=== PATIENT | female | born 1985 | race Caucasian/White ===

== ENCOUNTER 2017-11-13 09:33 | Emergency (ER) | payer OTHER ==
[~2017-11-13] VITALS: Ht 167.6 cm; Wt 117.9 kg
[~2017-11-13 09:33] MED LIST: ? ANTIBIOTIC; ACET325 PO; ACET500 PO; ALBIPROI INH; ALBU.083IS IH; ALBU90I INH; ALBU90OI61 INH; AMOCLA500; AMOCLA875 PO; AMOX500 PO; ARIP10 PO; ARIP15 PO; ATOM40 PO; ATOR10 PO; AZIT250 PO; AZIT500 PO; Augmentin 875-1 EACH PO; BCP; BCP'S; BUSP10; Bactrim Ds Tab1 EACH PO; Benadryl 50 mg50 MG PO; CEFP200 PO; CEPH500 PO; CIPHYDOTSU AS; CIPHYDOTSU OT; CITA20 PO; CLIN300 PO; CLON.5 PO; CLON1 PO; CRUTCH3 USE; CRUTCH4 USE; CYCL10 PO; Catapres0.1 MG PO; Cleocin HCl300 MG PO; DEXGUASY PO; DOCU100 PO; DULO30 PO; DULO60 PO; Diflucan100 MG PO; Diflucan200 MG PO; Drysol35 ML; FAMO20 PO; FLUC100 PO; FLUC150A PO; FLUC200 PO; FLUSAL2505 IH; FURO20 PO; GABA300 PO; GLUCOPHAGE; HYDACE10B PO; HYDACE5 PO; HYDGUAL120 PO; HYDHCL25 PO; IBUP600 PO; IBUP800; IBUP800 PO; IRON; IRON PO; Keflex500 MG PO; LAMO100; LITH300C PO; MEDICAL MARIJUANA; METERG.2 PO; METF500 PO; METHADONE10 MG/1 ML PO; METR500; MONT10T; MULVITMINE; MULVITMINE PO; MUPI2TO TOP; Monodox100 MG PO; NAPR375 PO; NAPR500; NAPR500 PO; NAPR550 PO; NITR100CA PO; NORT10 PO; NORT75 PO; NYST100TO TOP; Norco 10-325 T1 EACH PO; OLAN5 PO; OMEP20ER PO; ORACON PO; OXYACE5T PO; OXYACE7.5T PO; OXYCODONE; Oxycodone-Apap1 EAC3 PO; PARO20; PENVK500 PO; PERM5TC TOP; PHENA200 PO; PRAZ1 PO; PRED10 PO; PRED20 PO; PROACE100 PO; PROCODE120 PO; PRODEXEL PO; PROM25 PO; PROP10 PO; PROP60 PO; PROZAC20 MG; RANI150 PO; RIZA; RIZA10MLT; ROBITUSSIN NIG118 ML PO; RXCYCL10 PO; RXERYTOPTH OP; RXOXYACE PO; RXPROACE PO; SAPHRIS SL; SERT100; SERT25 PO; SINGULAIR; SUBOXONE 8 MG-1 EACH SL; SULTRIDS PO; SUMA25; TRAACE PO; TRAM50 PO; TRIA80TC TOP; Ultram50 MG PO; VALA500; VARE1 PO; Veetids 500500 MG PO; Ventolin/Prove6.7 GM INH; YASMINE; Zofran Odt4 MG SL; [UNRECOGNIZED DRUG - REMARK]; [UNRECOGNIZED DRUG - REMARK] PO
[2017-11-13] MEDS ORDERED: Lamictal150 MG PO (09:49)
[2017-11-13] MEDS ORDERED: Vyvanse70 MG PO (09:49)
[2017-11-13] MEDS ORDERED: Prozac40 MG PO (09:49)
[2017-11-13] MEDS ORDERED: Veetids 500500 MG PO (10:20)
[2017-11-13] MEDS ORDERED: Diflucan150 MG PO (10:20)
[2017-11-13] MEDS ORDERED: Zofran Odt4 MG SL (10:20)
[2018-10-22] MEDS ORDERED: NAPR550 PO (21:38)
== END 2017-11-13 10:37 | disposition home or self-care (01) ==
LOC: ER 09:33
DX: J02.0 Streptococcal pharyngitis (principal); J45.909 Unspecified asthma, uncomplicated; E11.9 Type 2 diabetes mellitus without complications; F17.200 Nicotine dependence, unspecified, uncomplicated; Z88.6 Allergy status to analgesic agent; Z88.1 Allergy status to other antibiotic agents; Z91.040 Latex allergy status; Z88.8 Allergy status to other drugs, medicaments and biological substances; Z79.899 Other long term (current) drug therapy; Z86.14 Personal history of Methicillin resistant Staphylococcus aureus infection; Z86.19 Personal history of other infectious and parasitic diseases; Z79.2 Long term (current) use of antibiotics
CPT/HCPCS: 87430; 99283

== ENCOUNTER 2018-01-02 17:33 | Emergency (ER) | payer OTHER ==
[~2018-01-02] VITALS: Ht 167.6 cm; Wt 120.7 kg
[~2018-01-02 17:33] MED LIST changes: +Diflucan150 MG PO; +Lamictal150 MG PO; +Prozac40 MG PO; +Vyvanse70 MG PO
[2018-01-02 18:11] LABS: BASOPHILS ABSOLUTE AUTO 0.03 K/mm3 (0.00-0.23); BASOPHILS PERCENT AUTO 0 % (0-2); EOSINOPHILS ABSOLUTE AUTO 0.17 K/mm3 (0.00-0.68); EOSINOPHILS PERCENT AUTO 2 % (0-6); Hematocrit 41.2 % (33.0-51.0); Hemoglobin 13.6 g/dL (11.5-16.0); IMMATURE GRAN ABSOLUTE AUTO 0.06 K/mm3 (0.00-0.10); IMMATURE GRAN PERCENT AUTO 1 % (0-1); LYMPHOCYTES ABSOLUTE AUTO 3.12 K/mm3 (0.84-5.20); LYMPHOCYTES PERCENT AUTO 27 % (21-46); MONOCYTES ABSOLUTE AUTO 0.77 K/mm3 (0.16-1.47); MONOCYTES PERCENT AUTO 7 % (4-13); Mean Corpuscular HGB 29.2 pg (26.0-34.0); Mean Corpuscular Volume 88 fL (80-100); Mean Platelet Volume 9.3 fL (9.1-12.4); NEUTROPHILS ABSOLUTE AUTO 7.28 K/mm3 (1.96-9.15); NEUTROPHILS PERCENT AUTO 64 % (41-73); Platelet Count 294 K/mm3 (150-400); RDW Coefficient Variation 12.6 % (11.7-14.2); RDW Standard Deviation 41.1 fL (35.1-46.3); Red Blood Cell Count 4.66 M/mm3 (3.80-5.20); White Blood Cell Count 11.43 K/mm3 (4.00-11.30)
[2018-01-02 18:35] LABS: Alanine Aminotransfer (ALT/SGP 58 U/L (12-78); Albumin, Blood 3.4 g/dL (3.4-5.0); Albumin/Globulin Ratio 0.8 (0.8-1.8); Alk Phos 101 U/L (50-136); Anion Gap 7 mmol/L (6-16); Aspartate Aminotrans (AST/SGOT 36 U/L (12-37); Bilirubin, Total 0.2 mg/dL (0.1-1.0); Blood Urea Nitrogen 11 mg/dL (8-24); Bun/Creatinine Ratio 13.3 (12.0-20.0); CO2, Blood 26 mmol/L (21-32); Calcium, Blood 8.4 mg/dL (8.5-10.1); Chloride, Blood 105 mmol/L (98-108); Creatinine, Blood 0.83 mg/dL (0.40-1.00); Glomerular Filtration Rate >60 (60-); Glucose, Blood 87 mg/dL (70-99); Potassium, Blood 4.1 mmol/L (3.5-5.5); Sodium, Blood 138 mmol/L (136-145); Total Protein, Blood 7.4 g/dL (6.4-8.2); Troponin I <0.015 ng/mL (0.000-0.040)
[2018-10-22] MEDS ORDERED: NAPR550 PO (21:38)
== END 2018-01-02 19:18 | disposition home or self-care (01) ==
LOC: ER 17:33
PROVIDERS: Physician Assistant
DX: K29.70 Gastritis, unspecified, without bleeding (principal); E11.9 Type 2 diabetes mellitus without complications; J45.909 Unspecified asthma, uncomplicated; F17.200 Nicotine dependence, unspecified, uncomplicated; Z88.8 Allergy status to other drugs, medicaments and biological substances; Z86.14 Personal history of Methicillin resistant Staphylococcus aureus infection; Z88.1 Allergy status to other antibiotic agents; Z91.040 Latex allergy status; Z79.899 Other long term (current) drug therapy; Z79.2 Long term (current) use of antibiotics
CPT/HCPCS: 36415; 71046; 80053; 84484; 85025; 93005; 93010; 99283

== ENCOUNTER 2018-04-28 08:45 | Day surgery (SDC) | payer OTHER ==
[2018-04-29] MEDS ORDERED: Bactrim Ds Tab1 EACH PO (23:48)
[2018-04-29] MEDS ORDERED: Diflucan100 MG PO (23:48)
== END 2018-04-29 22:45 | disposition home or self-care (01) ==
LOC: RAD 08:45 → CT 10:00 → RAD 04-29 22:45
PROVIDERS: Radiology Diagnostic Radiology
PROC: BR29YZZ Computerized Tomography (CT Scan) of Lumbar Spine using Other Contrast (ICD-10-PCS; principal; 2018-04-28 11:00)
DX: M47.27 Other spondylosis with radiculopathy, lumbosacral region (principal); M48.061 Spinal stenosis, lumbar region without neurogenic claudication; M19.90 Unspecified osteoarthritis, unspecified site
CPT/HCPCS: 62304; 72132; Q9966

== ENCOUNTER 2018-04-29 22:21 | Emergency (ER) | payer OTHER ==
[~2018-04-29] VITALS: Ht 167.6 cm; Wt 126.5 kg
[2018-04-29] MEDS ORDERED: Diflucan100 MG PO (23:48)
[2018-04-29] MEDS ORDERED: Bactrim Ds Tab1 EACH PO (23:48)
== END 2018-04-29 23:55 | disposition home or self-care (01) ==
LOC: ER 22:21
DX: S50.812A Abrasion of left forearm, initial encounter (principal); L02.414 Cutaneous abscess of left upper limb; E11.9 Type 2 diabetes mellitus without complications; J45.909 Unspecified asthma, uncomplicated; F17.210 Nicotine dependence, cigarettes, uncomplicated; Z88.8 Allergy status to other drugs, medicaments and biological substances; Z88.1 Allergy status to other antibiotic agents; Z91.040 Latex allergy status; Z91.048 Other nonmedicinal substance allergy status; Z79.899 Other long term (current) drug therapy; X58.XXXA Exposure to other specified factors, initial encounter
CPT/HCPCS: 10060; 99283

== ENCOUNTER 2018-07-27 07:46 | Emergency (ER) | payer OTHER ==
[~2018-07-27] VITALS: Ht 167.6 cm; Wt 122.5 kg
[2018-07-27] MEDS ORDERED: METH40 PO (08:10)
[2018-07-27] MEDS ORDERED: Amoxicillin500 MG PO (08:14)
[2018-07-27] MEDS ORDERED: IBUP800 PO (08:14)
== END 2018-07-27 08:36 | disposition home or self-care (01) ==
LOC: ER 07:46
DX: K08.89 Other specified disorders of teeth and supporting structures (principal); J45.909 Unspecified asthma, uncomplicated; E11.9 Type 2 diabetes mellitus without complications; F17.200 Nicotine dependence, unspecified, uncomplicated; Z88.8 Allergy status to other drugs, medicaments and biological substances; Z88.1 Allergy status to other antibiotic agents; Z91.040 Latex allergy status; Z91.048 Other nonmedicinal substance allergy status; Z79.899 Other long term (current) drug therapy
CPT/HCPCS: 99282

== ENCOUNTER 2018-08-16 02:18 | Emergency (ER) | payer OTHER ==
[~2018-08-16] VITALS: Ht 160 cm; Wt 122.5 kg
[~2018-08-16 02:18] MED LIST changes: +Amoxicillin500 MG PO; +METH40 PO
[2018-08-16] MEDS ORDERED: Bactrim Ds Tab1 EACH PO (03:43)
== END 2018-08-16 03:52 | disposition home or self-care (01) ==
LOC: ER 02:18
DX: L02.211 Cutaneous abscess of abdominal wall (principal); E11.9 Type 2 diabetes mellitus without complications; D64.9 Anemia, unspecified; F17.200 Nicotine dependence, unspecified, uncomplicated; Z88.8 Allergy status to other drugs, medicaments and biological substances; Z88.1 Allergy status to other antibiotic agents; Z91.040 Latex allergy status; Z91.048 Other nonmedicinal substance allergy status; Z79.899 Other long term (current) drug therapy
CPT/HCPCS: 10060; 87070; 87075; 87076; 87185; 87205; 99282-25

== ENCOUNTER 2018-11-27 19:12 | Emergency (ER) | payer OTHER ==
[~2018-11-27] VITALS: Ht 167.6 cm; Wt 122.5 kg
[2018-11-27] MEDS ORDERED: CLIN300 (19:27)
[2018-11-27] MEDS ORDERED: Bactrim Ds Tab1 EACH PO (19:54)
[2018-11-27] MEDS ORDERED: CEPH500 PO (19:54)
== END 2018-11-27 20:14 | disposition home or self-care (01) ==
LOC: ER 19:12
DX: L02.413 Cutaneous abscess of right upper limb (principal); Z88.8 Allergy status to other drugs, medicaments and biological substances; Z88.1 Allergy status to other antibiotic agents; Z91.040 Latex allergy status; Z91.048 Other nonmedicinal substance allergy status; Z79.899 Other long term (current) drug therapy; G43.909 Migraine, unspecified, not intractable, without status migrainosus; D64.9 Anemia, unspecified; E11.9 Type 2 diabetes mellitus without complications; F31.9 Bipolar disorder, unspecified; F17.200 Nicotine dependence, unspecified, uncomplicated
CPT/HCPCS: 10060; 99282-25

== ENCOUNTER → 2018-11-28 | Outpatient (CLI) | payer OTHER ==
[~2018-11-28] MED LIST changes: +CLIN300
== END ==
LOC: LAB 17:00 → LAB SHORT 17:00
DX: L08.9 Local infection of the skin and subcutaneous tissue, unspecified (principal)
CPT/HCPCS: 87070; 87205

== ENCOUNTER → 2018-12-05 | Outpatient (CLI) | payer OTHER | END | disposition home or self-care (01) | LOC: LAB 16:30 → LAB SHORT 16:30 | DX: L08.9 Local infection of the skin and subcutaneous tissue, unspecified (principal) | CPT/HCPCS: 87070; 87075; 87077; 87186; 87205 ==

== ENCOUNTER 2020-07-11 06:26 | Emergency (ER) | payer OTHER ==
[~2020-07-11] VITALS: Ht 167.6 cm; Wt 139.2 kg
[~2020-07-11 06:26] MED LIST changes: -Lamictal150 MG PO; -METH40 PO; -Prozac40 MG PO
[2020-07-11] MEDS ORDERED: AMPDEX10CR PO (06:57)
[2020-07-11 07:06] LABS: BASOPHILS ABSOLUTE AUTO 0.03 K/mm3 (0.00-0.23); BASOPHILS PERCENT AUTO 0 % (0-2); EOSINOPHILS ABSOLUTE AUTO 0.16 K/mm3 (0.00-0.68); EOSINOPHILS PERCENT AUTO 1 % (0-6); Hematocrit 36.5 % (33.0-51.0); Hemoglobin 11.9 g/dL (11.5-16.0); IMMATURE GRAN ABSOLUTE AUTO 0.11 K/mm3 (0.00-0.10); IMMATURE GRAN PERCENT AUTO 1 % (0-1); LYMPHOCYTES ABSOLUTE AUTO 2.33 K/mm3 (0.84-5.20); LYMPHOCYTES PERCENT AUTO 15 % (21-46); MONOCYTES PERCENT AUTO 5 % (4-13); Mean Corpuscular HGB 28.8 pg (26.0-34.0); Mean Corpuscular HGB Conc 32.6 g/dL (31.5-36.5); Mean Corpuscular Volume 88 fL (80-100); Mean Platelet Volume 9.1 fL (9.1-12.4); NEUTROPHILS ABSOLUTE AUTO 11.77 K/mm3 (1.96-9.15); NEUTROPHILS PERCENT AUTO 78 % (41-73); Platelet Count 242 K/mm3 (150-400); RDW Coefficient Variation 13.5 % (11.7-14.2); RDW Standard Deviation 43.8 fL (35.1-46.3); Red Blood Cell Count 4.13 M/mm3 (3.80-5.20)
[2020-07-11 07:25] LABS: Alanine Aminotransfer (ALT/SGP 49 U/L (12-78); Albumin, Blood 2.9 g/dL (3.4-5.0); Albumin/Globulin Ratio 0.7 (0.8-1.8); Alk Phos 126 U/L (50-136); Anion Gap 8 mmol/L (6-16); Aspartate Aminotrans (AST/SGOT 35 U/L (12-37); Bilirubin, Total 0.4 mg/dL (0.1-1.0); Blood Urea Nitrogen 8 mg/dL (8-24); Bun/Creatinine Ratio 11.7 (12.0-20.0); CO2, Blood 23 mmol/L (21-32); Calcium, Blood 8.4 mg/dL (8.5-10.1); Chloride, Blood 107 mmol/L (98-108); Creatinine, Blood 0.69 mg/dL (0.40-1.00); Globulin, Blood 4.4 g/dL (2.2-4.0); Glomerular Filtration Rate >60 (60-); Glucose, Blood 142 mg/dL (70-99); Potassium, Blood 3.6 mmol/L (3.5-5.5); Sodium, Blood 138 mmol/L (136-145); Total Protein, Blood 7.3 g/dL (6.4-8.2); Troponin I <0.015 ng/mL (0.000-0.040)
[2020-07-11 09:25] LABS: Source, Urine Clean Catch
[2020-07-11 09:32] LABS: Appearance, Urine Clear (Clear); Bilirubin, Urine Neg (Neg); Blood, Urine Neg (Neg); Color, Urine Yellow (P-Yellow); Glucose Qualitative, Urine Neg (Neg); Ketones, Urine Neg (Neg); Leukocyte Esterase, Urine Neg (Neg); Nitrite, Urine Neg (Neg); Protein, Urine Neg (Neg); Specific Gravity, Urine 1.005 (1.003-1.022); Urobilinogen, Urine NORM (Normal)
[2020-07-11] MEDS ORDERED: Zithromax250 MG PO (09:46)
[2020-07-11] MEDS ORDERED: CEFD300 PO (09:46)
[2020-07-11] MEDS ORDERED: LAMICTAL200 MG PO (20:39)
[2020-07-11] MEDS ORDERED: METH40 PO (20:40)
[2020-07-11] MEDS ORDERED: PROZAC40 MG PO (20:40)
[2020-07-11] MEDS ORDERED: OMEP20ER PO (20:41)
[2020-07-11] MEDS ORDERED: ABILIFY MYCITE5 M1 PO (20:41)
[2020-07-11] MEDS ORDERED: NAPR500 PO (22:36)
[2020-07-11] MEDS ORDERED: IBUP800 (22:37)
[2020-07-11] MEDS ORDERED: ACET500 PO (22:38)
== END 2020-07-11 09:59 | disposition home or self-care (01) ==
LOC: ER 06:26
PROVIDERS: Emergency Medicine
DX: J18.9 Pneumonia, unspecified organism (principal); E11.9 Type 2 diabetes mellitus without complications; F41.9 Anxiety disorder, unspecified; F31.9 Bipolar disorder, unspecified; K21.9 Gastro-esophageal reflux disease without esophagitis; F17.200 Nicotine dependence, unspecified, uncomplicated; Z91.040 Latex allergy status; Z88.1 Allergy status to other antibiotic agents; Z91.09 Other allergy status, other than to drugs and biological substances; Z88.8 Allergy status to other drugs, medicaments and biological substances; Z79.899 Other long term (current) drug therapy
CPT/HCPCS: 36415; 71045; 80053; 81003; 83880; 84484; 85025; 86140; 93005; 93010; 96365; 96375; 99285-25; J0696; J1200; J2765; J7030

== ENCOUNTER 2020-07-11 16:59 | Inpatient (IN) | payer OTHER ==
[~2020-07-11] VITALS: Ht 167.6 cm; Wt 142.1 kg
[~2020-07-11 16:59] MED LIST changes: +AMPDEX10CR PO; +CEFD300 PO; +Zithromax250 MG PO
[2020-07-11 20:21] LABS: Influenza A Negative (NEGATIVE); Influenza B Negative (NEGATIVE)
[2020-07-11] MEDS ORDERED: LAMICTAL200 MG PO (20:39)
[2020-07-11] MEDS ORDERED: PROZAC40 MG PO (20:40)
[2020-07-11] MEDS ORDERED: METH40 PO (20:40)
[2020-07-11] MEDS ORDERED: ABILIFY MYCITE5 M1 PO (20:41)
[2020-07-11] MEDS ORDERED: OMEP20ER PO (20:41)
[2020-07-11] MEDS ORDERED: NAPR500 PO (22:36)
[2020-07-11] MEDS ORDERED: IBUP800 (22:37)
[2020-07-11] MEDS ORDERED: ACET500 PO (22:38)
--- NOTE | 2020-07-12 04:23 | NUR ---
SUMMARY PT ARRIVED TO FLOOR IN NO DISTRESS. PT ATE A SNACK AND HAS BEEN SLEEPING WELL. PT CURRENTLY SLEEPING AND BREATHING EASY. CALL LIGHT IN REACH.
[2020-07-12 05:42] LABS: BASOPHILS ABSOLUTE AUTO 0.05 K/mm3 (0.00-0.23); BASOPHILS PERCENT AUTO 0 % (0-2); EOSINOPHILS ABSOLUTE AUTO 0.23 K/mm3 (0.00-0.68); EOSINOPHILS PERCENT AUTO 1 % (0-6); Hematocrit 35.1 % (33.0-51.0); Hemoglobin 11.4 g/dL (11.5-16.0); IMMATURE GRAN ABSOLUTE AUTO 0.09 K/mm3 (0.00-0.10); IMMATURE GRAN PERCENT AUTO 1 % (0-1); LYMPHOCYTES ABSOLUTE AUTO 2.27 K/mm3 (0.84-5.20); LYMPHOCYTES PERCENT AUTO 14 % (21-46); MONOCYTES ABSOLUTE AUTO 0.53 K/mm3 (0.16-1.47); MONOCYTES PERCENT AUTO 3 % (4-13); Mean Corpuscular HGB 28.9 pg (26.0-34.0); Mean Corpuscular HGB Conc 32.5 g/dL (31.5-36.5); Mean Corpuscular Volume 89 fL (80-100); Mean Platelet Volume 9.6 fL (9.1-12.4); NEUTROPHILS ABSOLUTE AUTO 13.08 K/mm3 (1.96-9.15); NEUTROPHILS PERCENT AUTO 80 % (41-73); Platelet Count 237 K/mm3 (150-400); RDW Coefficient Variation 13.8 % (11.7-14.2); RDW Standard Deviation 45.1 fL (35.1-46.3); Red Blood Cell Count 3.94 M/mm3 (3.80-5.20); White Blood Cell Count 16.25 K/mm3 (4.00-11.30)
[2020-07-12 06:19] LABS: Anion Gap 5 mmol/L (6-16); Blood Urea Nitrogen 8 mg/dL (8-24); Bun/Creatinine Ratio 11.2 (12.0-20.0); CO2, Blood 25 mmol/L (21-32); Calcium, Blood 8.1 mg/dL (8.5-10.1); Chloride, Blood 108 mmol/L (98-108); Creatinine, Blood 0.71 mg/dL (0.40-1.00); Glomerular Filtration Rate >60 (60-); Glucose, Blood 102 mg/dL (70-99); Potassium, Blood 4.2 mmol/L (3.5-5.5); Sodium, Blood 138 mmol/L (136-145)
--- NOTE | 2020-07-12 06:30 | NUR ---
0630 PT CONCERNED ABOUT GETTING HER HOME MEDS ORDERED THIS AM. PT STATES SHE REALLY DOES NOT WANT TO MISS HER METHADONE MED TODAY. WILL PASS ON TO DAY RN.
--- NOTE | 2020-07-12 07:39 | NUR ---
METHADONE DR. ANDREW CALLED & INFORMED THAT PT HOME MEDICAIONS, INCLUDING HER METHADONE AND LAMACTIL WERE NOT ORDERED. DR. ANDREW STATED SHE WILL LOOK INTO THE ISSUE.
--- NOTE | 2020-07-12 12:28 | NUR ---
8L O2 PT REQUIRING 8L O2 VIA HIGH FLOW NC. PT SATING AT 91% WITH THIS INCREASE. RT & DR. ANDREW NOTIFIED OF INCREASE. ORDER FOR IS AND FLUTTER VALVE TAKEN. WILL CONTINUE TO MONITOR.
--- NOTE | 2020-07-12 16:19 | NUR ---
RAPID COVID/AIRVO T/O SHIFT PT HAS CONTINUED TO NEED MORE AND MORE O2 NEEDS. PT GOT UP TO 10L O2 AND STILL ONLY SATING IN AT 88-90. DR. ANDREW NOTIFIED, RAPID COVID ORDERED DUE TO PT INCREASE IN O2 NEEDS. PT CURRENLY BEING SWITCHED TO AIRVO BY RT TO ASSIST WITH O2 DEMANDS. PT CONTINUED NAUSEA REPORTED TO DR. ANDREW. PT SLEEPY BY ALERT AND ORIENTED. RAPID TEST COLLECTED & SENT TO LAB. WILL CALL MD WITH RESULTS OF RAPID COVID TEST.
--- NOTE | 2020-07-12 17:30 | NUR ---
ARRIVED TO ICU: PT ARRIVED TO THE UNIT BY WHEELCHAIR WITH MASK IN PLACE AND PT ON O2 VIA NC. PT TRANSFERED TO THE BED WITH A 1 PERSON ASSIST. PT REQUESTING A MAHER D/T INCREASED SOB WITH EXERSION. RT STARTED AIRVO SEE VITAL SIGNS.
--- NOTE | 2020-07-12 17:58 | NUR ---
TRANSFER TO ICU PT TRANSFERED TO ICU FOR CLOSER OBSERVATION PER DR. ANDREW. PRIOR TO TRANSER PT WAS SATING IN THE LOW 90S ON THE AIRVO. PT RAPID COVID NEGATIVE. SENT OUT PENDING. PT HAD INCREASED O2 DEMANDS T/O DAY. SEE PREVIOUS NOTE. DYSPNEA WITH EXERTION WHILE USING THE BSC. PT ALERT & ORIENTED T/O SHIFT. NO OTHER ACUTE CHANGES IN ASSESSMENT PRIOR TO TRANSFER ASIDE FROM INCREASED O2 NEEDS. BEDSIDE REPORT COMPLETED WITH GRAHAM MARK. ATTEMPTED TO CONTACT PT TO UPDATE HIM. NO ANSWER AND NO VOICEMAIL AVAILABLE.
--- NOTE | 2020-07-12 19:20 | NUR ---
ASSUMED CARE OF PT, SHE IS RESTING QUIETLY RECLINING IN BED, SATS ARE MAINTAINING MID 90S WITH AIRVO IN USE, SINUS TO SINUS TACH ON MONITOR, RATE 90-LOW 100S, PRESSURES MAINTAINING, PT IS SPEAKING IN SHORT SENTENCES, HAS REPORTED DECREASED AIR HUNGER WITH AIRVO USE, REQUESTS DINNER TRAY AT THIS TIME SHE STATES THAT SHE IS HUNGRY AND DID NOT RECEIVE HER TRAY SECONDARY TO TRANSFER FROM MEDICAL FLOOR TO ICU. NURSING TIE CUTTER NOTIFIED OF PT REQUEST.
[2020-07-12 19:36] LABS: Source, Urine Catheter
[2020-07-12 19:47] LABS: Appearance, Urine Clear (Clear); Bilirubin, Urine Neg (Neg); Blood, Urine Neg (Neg); Color, Urine Yellow (P-Yellow); Glucose Qualitative, Urine Neg (Neg); Ketones, Urine Neg (Neg); Leukocyte Esterase, Urine Neg (Neg); Nitrite, Urine Neg (Neg); Protein, Urine Neg (Neg); Specific Gravity, Urine 1.005 (1.003-1.022); Urobilinogen, Urine 1+ (Normal)
--- NOTE | 2020-07-12 20:30 | NUR ---
HS ASSESSMENT PT CONTINUES RESTING QUIETLY RECLINING IN BED, DENIES PAIN, ADMITS TO SLIGHT NAUSEA HOWEVER BELIEVES THAT THIS WILL BE ALLEVIATED WITH EATING DINNER, TRAY IS AT BEDSIDE AT THIS TIME, DENIES CP/PRESSURE, SHORTNESS OF BREATH/DYSPNEA CONTINUES HOWEVER IS SOMEWHAT IMPROVED WITH THE USE OF AIRVO. SATS ARE MID 90S WITH OXYGEN VIA AIRVO AT 45 L/MIN FOR FIO2 OF 40%, RESP RATE MID TO HIGH 20S, PT IS SPEAKING IN FULL SENTENCES AT THIS TIME, LUNGS ARE CLEAR WITH DIM BASES BILAT, PT DENIES PRODUCTIVE COUGH, SKIN IS PWD. HRR, SINUS TO SINUS TACH CONTINUES, PRESSURES CONT TO MAINTAIN, PULSES FULL X 4 EXTREMITIES, NO EDEMA IS NOTED, CAP REFILL IS BRISK. BOWEL TONES PRESENT X 4, ABD SOFT, NO GRIMACING/GUARDING WITH PALPATION. TEMP PROBE MAHER IN PLACE DRAINING CLEAR YELLOW URINE TO GRAVITY, TEMP IS NOW 100.0. IV ACCESS NOTED TO RIGHT UPPER ARM, INQUIRED REGARDING BEST LOCATION FOR SECOND IV, PT STATES THAT THERE IS NO GOOD LOCATION "IT'S ALL JUST LUCK ANYMORE FOR THEM AND FOR ME" WILL PLAN FOR EXTENDED DWELL PLACEMENT.
[2020-07-12 20:49] LABS: Adenovirus Not Detected (NOT DETECT); Bordetella pertussis Not Detected (NOT DETECT); Chlamydophila pneumoniae Not Detected (NOT DETECT); Coronavirus 229E Not Detected (NOT DETECT); Coronavirus HKU1 Not Detected (NOT DETECT); Coronavirus NL63 Not Detected (NOT DETECT); Coronavirus OC43 Not Detected (NOT DETECT); Human Metapneumovirus Not Detected (NOT DETECT); Human Rhinovirus/Enterovirus Not Detected (NOT DETECT); Influenza A/2009-H1 Not Detected (NOT DETECT); Influenza A/H1 Not Detected (NOT DETECT); Influenza A/H3 Not Detected (NOT DETECT); Influenza B Not Detected (NOT DETECT); Mycoplasma pneumoniae Not Detected (NOT DETECT); Parainfluenza Virus 1 Not Detected (NOT DETECT); Parainfluenza Virus 2 Not Detected (NOT DETECT); Parainfluenza Virus 3 Not Detected (NOT DETECT); Parainfluenza Virus 4 Not Detected (NOT DETECT); Respiratory Syncytial Virus Not Detected (NOT DETECT); SARS-Cov-2 (COVID-19), BioFire Not Detected (NOT DETECT)
[2020-07-13 00:03] LABS: International Normalized Ratio 0.98; Prothrombin Time Results 10.5 Sec (9.7-11.5)
[2020-07-13 05:38] LABS: BASOPHILS ABSOLUTE AUTO 0.03 K/mm3 (0.00-0.23); BASOPHILS PERCENT AUTO 0 % (0-2); EOSINOPHILS PERCENT AUTO 0 % (0-6); Hematocrit 34.8 % (33.0-51.0); Hemoglobin 11.3 g/dL (11.5-16.0); IMMATURE GRAN ABSOLUTE AUTO 0.16 K/mm3 (0.00-0.10); IMMATURE GRAN PERCENT AUTO 1 % (0-1); LYMPHOCYTES ABSOLUTE AUTO 1.29 K/mm3 (0.84-5.20); LYMPHOCYTES PERCENT AUTO 8 % (21-46); MONOCYTES ABSOLUTE AUTO 0.32 K/mm3 (0.16-1.47); MONOCYTES PERCENT AUTO 2 % (4-13); Mean Corpuscular HGB 28.6 pg (26.0-34.0); Mean Corpuscular HGB Conc 32.5 g/dL (31.5-36.5); Mean Corpuscular Volume 88 fL (80-100); Mean Platelet Volume 9.7 fL (9.1-12.4); NEUTROPHILS ABSOLUTE AUTO 15.44 K/mm3 (1.96-9.15); NEUTROPHILS PERCENT AUTO 90 % (41-73); Platelet Count 284 K/mm3 (150-400); RDW Coefficient Variation 13.5 % (11.7-14.2); Red Blood Cell Count 3.95 M/mm3 (3.80-5.20); White Blood Cell Count 17.24 K/mm3 (4.00-11.30)
[2020-07-13 05:58] LABS: Anion Gap 6 mmol/L (6-16); Blood Urea Nitrogen 8 mg/dL (8-24); Bun/Creatinine Ratio 11.8 (12.0-20.0); CO2, Blood 25 mmol/L (21-32); Calcium, Blood 8.9 mg/dL (8.5-10.1); Chloride, Blood 106 mmol/L (98-108); Creatinine, Blood 0.68 mg/dL (0.40-1.00); Glomerular Filtration Rate >60 (60-); Glucose, Blood 152 mg/dL (70-99); Potassium, Blood 4.2 mmol/L (3.5-5.5); Sodium, Blood 137 mmol/L (136-145)
--- NOTE | 2020-07-13 10:02 | NUR ---
PT SLEEPING IN ROOM, AWAKENS FREQUENTLY. C/O 05/24 TO "LUNGS" WITH BREATHING. PT C/O NAUSEA. VSS, SATS >90% ON 45L/AIRVO. LUNGS CLEAR T/O SOME DYSPNEA W EXERTION. WILL KEEP PT NPO X SIPS OF WATER W MEDS UNTIL CLEARED BY DR GUSTAFSON BRONCHOSCOPY MAY BE PLANNED FOR TODAY. BOTH RAPID AND SEND OUT COVID-19 ARE NEGATIVE. PHENERGAN 12.5 GIVEN FOR C/O NAUSEA.
--- NOTE | 2020-07-13 13:00 | NUR ---
PT PREPPED FOR BROCHOSCOPY WITH DR GUSTAFSON. NARES NUMBED WITH LIDOCAINE MAD/SYRINGE AND VISCOUS LIDOCAINE WELL. RT AT BEDSIDE. FENT AND VERSED AVAILABLE AT AND FOR PROCEDURE. O2 INCREASED TO 85L VIA AIRVO PRE PROCEDURE BY RT.
--- NOTE | 2020-07-13 14:47 | NUR ---
PT RECEIVED FENTANYL 200MCG/VERSED 10MG OVER 11 MIN IN ATTEMPT TO SEDATE FOR BEDSIDE BRONCHOSCOPY. SEDATION STARTED AT 1309 AND ENDED AT 1320. SCOPE WAS PASSED AROUND 1316 AND PULLED OUT AT 1320; PT WAS STILL VERY RESTLESS AT THIS POINT. ADDITIONAL MEDS WHERE ORDERED TO BE AT HAND AT BEDSIDE, DRAWN UP, BUT NEVER USED PROCEDURE WAS ABORTED. UNABLE TO FINISH BROCHOSCOPY D/T INABILITY TO SEDATE ADEQAUTELY WITH DECREASING 02 SATURATION/INCREASED O2 NEEDS. PT RESTLESS, PULLING, AND MOVING T/O PROCEDURE, PT COUGHING EXCESSIVELY T/O PROCEDURE. PT GIVEN NARCAN AT 1400 FOR EXCESSIVE SEDATION REQUIRING BIPAP. PT AWAKE AND PLACED BACK ON AIRVO WITHIN MIN OF NARCAN ADMINISTRATION. PT NOW AT PREVIOUS AIRVO SETTINGS. PT'S CALLED AND GIVEN FULL UPDATE.
--- NOTE | 2020-07-13 17:27 | NUR ---
PT AWAKE, ALERT, AND WATCHING TV. PT DENIES COMPLAINTS AT THIS TIME. SIPD OF WATER GIVEN AT 1700; PT TOLERATED VERY WELL, REGULAR DINNER TRAY GIVEN; PT TOLERATING WELL. PT ABLE TO SPEAK AND EAT W WITHOUT INCREASED RESP EFFORT.
--- NOTE | 2020-07-13 19:00 | NUR ---
ASSUMED CARE ASSUMED CARE OF PATIENT. RESTING QUIETLY WHEN UNDISTURBED. ORIENTED AND COOPERATIVE WHEN AWAKE. SLOW VERBAL RESPONSE NOTED. MOVES ALL EXTREMITIES WEAKLY AND REPOSITIONS SELF IN BED WITH ENCOURAGEMENT. DYSPNEA NOTED WITH EXERTION. OCCASIONAL NON-PRODUCTIVE COUGH. REMAINS ON AIRVO 45L/40% FIO2. OCCASIONAL SHALLOW RESPIRATIONS NOTED. PT ENCOURAGED TO USE IS AND FLUTTER VALVE. MONITOR SHOWS NSR, RATE 80s. BP STABLE. AFEBRILE. MAHER PATENT AND DRAINING YELLOW URINE. PT C/O MILD NAUSEA, BUT IS EATING REESES PEANUT BUTTER CUPS AT THE MOMENT. SEE SHIFT ASSESSMENT FOR FULL ASSESSMENT.
[2020-07-14 05:20] LABS: BASOPHILS ABSOLUTE AUTO 0.03 K/mm3 (0.00-0.23); BASOPHILS PERCENT AUTO 0 % (0-2); EOSINOPHILS PERCENT AUTO 0 % (0-6); Hematocrit 33.1 % (33.0-51.0); Hemoglobin 10.6 g/dL (11.5-16.0); IMMATURE GRAN ABSOLUTE AUTO 0.35 K/mm3 (0.00-0.10); IMMATURE GRAN PERCENT AUTO 1 % (0-1); LYMPHOCYTES ABSOLUTE AUTO 2.24 K/mm3 (0.84-5.20); LYMPHOCYTES PERCENT AUTO 9 % (21-46); MONOCYTES ABSOLUTE AUTO 0.94 K/mm3 (0.16-1.47); MONOCYTES PERCENT AUTO 4 % (4-13); Mean Corpuscular HGB 28.3 pg (26.0-34.0); Mean Corpuscular Volume 89 fL (80-100); Mean Platelet Volume 9.2 fL (9.1-12.4); NEUTROPHILS ABSOLUTE AUTO 22.12 K/mm3 (1.96-9.15); NEUTROPHILS PERCENT AUTO 86 % (41-73); Platelet Count 334 K/mm3 (150-400); RDW Coefficient Variation 13.6 % (11.7-14.2); RDW Standard Deviation 44.6 fL (35.1-46.3); Red Blood Cell Count 3.74 M/mm3 (3.80-5.20); White Blood Cell Count 25.68 K/mm3 (4.00-11.30)
[2020-07-14 05:45] LABS: Anion Gap 6 mmol/L (6-16); Blood Urea Nitrogen 20 mg/dL (8-24); Bun/Creatinine Ratio 30.5 (12.0-20.0); CO2, Blood 25 mmol/L (21-32); Calcium, Blood 8.4 mg/dL (8.5-10.1); Chloride, Blood 107 mmol/L (98-108); Creatinine, Blood 0.66 mg/dL (0.40-1.00); Glomerular Filtration Rate >60 (60-); Glucose, Blood 133 mg/dL (70-99); Sodium, Blood 138 mmol/L (136-145)
--- NOTE | 2020-07-14 06:42 | NUR ---
SHIFT SUMMARY NO ACUTE CHANGES DURING SHIFT. PT SLEPT INTERMITTENTLY, ROUSES EASILY TO VERBAL STIMULI. REPOSITONS SELF IN BED WITH ENCOURAGEMENT. ALSO USES IS AND FLUTTER VALVE WITH ENCOURAGEMENT. REMAINS ON AIRVO- 45L/40% FIO2. RESPIRATIONS SHALLOW AT TIMES. OCCASIONAL NON-PRODUCTIVE COUGH. PT TOLERATING DIET AND REQUESTING SNACKS. OCCASIONALLY C/O NAUSEA AND REQUESTS IV ANTI-EMETIC. MAHER PATENT AND DRAINING CLEAR YELLOW URINE. C/O PAIN IN CHEST/LUNGS WITH DEEP BREATHING/COUGHING. WILL REPORT TO ONCOMING RN WHEN AVAILABLE.
--- NOTE | 2020-07-14 08:59 | NUR ---
[place] of Care: Care assumed at 0700hr. Patient alert and oriented x4, sitting upright in bed watching tv. C/o pain to lungs with deep inspiration, otherwise denies pain or discomfort. Currently on Airvo NC at 40LPM, 34% FiO2, spO2 96-98%, denies dyspnea/SOB, appears calm and comfortable. Campbell cath patent and intact, draining clear yellow urine. Peripheral IV to rt upper arm patent, Power-glide to lt upper arm patent and intact. Tolerating PO medications, food, and fluids without difficulty. Plan to get patient out of bed to chair today, as tolerated, patient agrees's with this plan. Will discuss possible status change with Dr. Tinsley this morning. Call light in reach, makes needs known. Will continue to monitor.
--- NOTE | 2020-07-14 10:56 | NUR ---
Update: Patient out of bed to bedside commode then to chair. C/o slight SOB, but quickly recovered and spO2 remained above 95%. Dr. Todd then to room, placed patient on High-flow NC at 3L (removed Airvo NC), spO2 90-93%. Instructed target spO2 of 88-94%. Plan to transfer patient to medical status if she continues to have spO2 wnl. Will continue to monitor. Call light in reach, makes needs known.
--- NOTE | 2020-07-14 18:04 | NUR ---
Shift Summary: Patient significantly improved throughout shift. Patient's Airvo removed this morning and placed on 3L/high-flow NC (see previous note). Patient remained on high-flow NC at 3-4L for remainder of shift, spO2 88-97%. Continues to deny pain, discomfort, SOB, or dyspnea, VS stable. Tolerated transferred to bedside commode and chair without difficulty. Tolerating PO food and fluids without difficulty. Calm and cooperative with staff, makes needs known. Status changed this afternoon to medical, without telemetry, per Dr. Todd. Will continue to monitor until report to NOC shift RN.
--- NOTE | 2020-07-14 19:25 | NUR ---
ASSESSMENT PT A&O X 4. RESTING IN BED. ON 2LNC SPO2 >93%. LS- EXPIRATORY WHEEZES IN UPPER QUADRANTS, INS & EXP WHEEZES LOWER QUADRANTS. NORMAL SINUS ON THE VACUUM CONDITIONER OPERATOR. ABD-TENDER UPON PALPATION. NG TUBE IN PLACE c LIS WITH MINIMAL OUTPUT. SKIP DRESSING ON MIDLINE ABDOMEN c SMALL DRAINAGE OUTLINED FROM DAY SHIFT, NO CHANGES FROM THEIR ASSESSMENT, DEVICE HAS GOOD SUCTION. NICK DRAIN ON R SIDE PUTTING OUT BILE/ SEROSANGIOUS FLUID, MORE OUTPUT ON THE R SIDE. NICK DRAIN ON L SIDE HAS MINIMAL SEROSANGUINOUS OUTPUT. PT ASKING FOR WATER OR JUICE, ADVICED HE IS NPO, OFFERED SPONGE.
--- NOTE | 2020-07-14 20:00 | NUR ---
SHIFT ASSESSMENT RECEIVED REPORT FROM GRAHAM YAN. PT A&OX4. C/O A HEADACHE, REQUESTING TYLENOL, WILL BE ADMINISTERED. HEENT-NORMOCEPHALIC. LS CLEAR, BUT DIMINISHED. ON 3LPM O2 NC. DOES NOT APPEAR TO BE DYSPNEIC AT THIS TIME. NS ON SUPERINTENDENT GAS DISTRIBUTION. ATTEMPTED TO FLUSH PERIPHERAL IV TO TATIA[place], PT C/O PAIN, IV DC'D. POWERGLIDE TO LEFT ARM PATENT. MAHER CATH PATENT AND DRAINING CLEAR YELLOW URINE. NO OTHER COMPLAINTS AT THIS TIME. PT ABLE TO MOVE SELF IN BED AND NOTIFY STAFF OF NEEDS. WILL CONTINUE TO MONITOR.
[2020-07-15 04:10] LABS: BASOPHILS ABSOLUTE AUTO 0.04 K/mm3 (0.00-0.23); BASOPHILS PERCENT AUTO 0 % (0-2); EOSINOPHILS ABSOLUTE AUTO 0.12 K/mm3 (0.00-0.68); EOSINOPHILS PERCENT AUTO 1 % (0-6); Hematocrit 35.1 % (33.0-51.0); Hemoglobin 11.5 g/dL (11.5-16.0); IMMATURE GRAN ABSOLUTE AUTO 0.39 K/mm3 (0.00-0.10); IMMATURE GRAN PERCENT AUTO 2 % (0-1); LYMPHOCYTES ABSOLUTE AUTO 3.57 K/mm3 (0.84-5.20); LYMPHOCYTES PERCENT AUTO 17 % (21-46); MONOCYTES ABSOLUTE AUTO 0.82 K/mm3 (0.16-1.47); MONOCYTES PERCENT AUTO 4 % (4-13); Mean Corpuscular HGB 28.7 pg (26.0-34.0); Mean Corpuscular HGB Conc 32.8 g/dL (31.5-36.5); Mean Corpuscular Volume 88 fL (80-100); Mean Platelet Volume 9.1 fL (9.1-12.4); NEUTROPHILS ABSOLUTE AUTO 16.65 K/mm3 (1.96-9.15); NEUTROPHILS PERCENT AUTO 77 % (41-73); Platelet Count 314 K/mm3 (150-400); RDW Coefficient Variation 13.4 % (11.7-14.2); RDW Standard Deviation 43.2 fL (35.1-46.3); Red Blood Cell Count 4.01 M/mm3 (3.80-5.20); White Blood Cell Count 21.59 K/mm3 (4.00-11.30)
[2020-07-15 04:24] LABS: Anion Gap 4 mmol/L (6-16); Blood Urea Nitrogen 21 mg/dL (8-24); CO2, Blood 28 mmol/L (21-32); Calcium, Blood 8.4 mg/dL (8.5-10.1); Chloride, Blood 106 mmol/L (98-108); Glomerular Filtration Rate >60 (60-); Glucose, Blood 93 mg/dL (70-99); Potassium, Blood 4.1 mmol/L (3.5-5.5); Sodium, Blood 138 mmol/L (136-145)
--- NOTE | 2020-07-15 05:35 | NUR ---
SHIFT SUMMARY PT SLEPT MOST OF THE NIGHT. NO COMPLAINTS. PLAN TO TX TO MEDICAL FLOOR @ 0600. REPORT GIVEN TO GRAHAM NUÑEZ.
--- NOTE | 2020-07-15 06:30 | NUR ---
PT ARRIVED TO ROOM FROM ICU VIA BED IN STABLE CONDITION. PT REQUESTED AND RECIEVED NAUSEA MEDS AND TYLENOL FOR A HEADACHE, MEDS GIVEN, WILL EVAL FOR EFFECT. NO OTHER APPARENT SIGNS OF DISTRESS. CALL LIGHT IS IN REACH. NO OTHER CHANGES THIS SHIFT.
[2020-07-15 15:08] LABS: FINAL INTERPRETATION Negative (.); HIV 1 AB Negative (Negative); HIV 2 AB Negative (Negative)
--- NOTE | 2020-07-15 15:55 | NUR ---
SHIFT SUMMARY PT IS A/O X4. SHE DENIES ANY PAIN. SHE DID C/O NAUSEA X 1 TODAY AND WAS MEDICATED PER MAR. HER MAHER WAS DCD PER DR MONK AND SHE HAS BEEN VOIDING ON HER OWN WITH NO ISSUE. PT EDUCATION WAS COMPLETED ON SMOKING CESSATION AND PT REPORTED THAT HER AND HER WILL BE QUITTING TOGETHER. PT WAS ASSISTED TO TAKE A SHOWER AND WASH HER HAIR. HER DAUGHTER IS AT THE BEDSIDE. THE PT IS COOPERATIVE WITH HER CARE AND CALLS FOR HELP APPROPRIATELY. SHE HAS HER CALL LIGHT IN REACH.
--- NOTE | 2020-07-16 04:03 | NUR ---
SHIFT SUMMARY ADMITTED FOR ACUTE HYPOXEMIC RESPIRATORY FAILURE. FULL CODE. SHE IS ON 3 LPM O2 VIA NC, RA @ HOME. IV ANTIBIOTICS AND SOLUMEDROL ARE SCHEDULED. PLAN IS TO CONTINUE ANTIBIOTICS, MAY SWITCH STEROIDS AND TAPER. TITRATE O2 DOWN TOLERATED. HOPEFUL FOR DC WITHIN TWO DAYS. NO EVENTS OR DISTRESS REPORTED SO FAR THIS SHIFT. NO NEW CONCERNS.
--- NOTE | 2020-07-16 16:58 | NUR ---
PT HAS RESTED ALL SHIFT, SHE IS ALERT AND ORIENTED AND ABLE TO AMBULATE AROUND THE ROOM SAFELY. SHE HAS HAD NO COMPLAINTS . HAS BEEN IN THE ROOM ALL SHIFT. PT STATES SHE HAS SOME WEAKNESS BUT IS IMPROVING. CALL LIGHT WITHIN REACH. NO ACUTE CHANGES.
--- NOTE | 2020-07-17 04:35 | NUR ---
SHIFT SUMMARY ADMITTED FOR ACUTE HYPOXEMIC RESPIRATORY FAILURE. FULL CODE. POSSIBLE PNEUMONIA FROM VAPING. ON 1.5 LPM O2 VIA NC, RA @ HOME. PLAN IS FOR A HOME O2 EVAL, PO STEROID TAPER, ANTIBIOTICS. SHE IS HOPEFUL FOR DC TODAY. NO NAUSEA THIS SHIFT SO FAR. HX: IV DRUG USE, BIPOLAR. NO NEW CONCERNS THIS SHIFT.
[2020-07-17] MEDS ORDERED: CEFP200 PO (10:35)
[2020-07-17] MEDS ORDERED: PRED20 PO (10:38)
[2020-07-17] MEDS ORDERED: LACT PO (10:39)
--- NOTE | 2020-07-17 10:57 | NUR ---
1050 PATIENT TO DISCHARGE HOME. [facility]. NO S/S OF INFECTION NOTED. NURSE EDUCATED PATIENT REGARDING NEW MEDICATION AND ENCOURAGED TO QUIT VAPING. ENCOURAGED TO FOLLOW UP WITH PCP. MEDICATIONS FAXED TO PHARMACY OF CHOICE. PT AND GATHERED BELONGINGS AND WALKED OUT PER REQUEST.
== END 2020-07-17 10:54 | disposition home or self-care (01) | DRG 205 ==
LOC: ER 16:59 → MEDS 17:00 → ICUE 07-12 11:49 → MEDS 07-12 11:50 → ICUE 07-12 17:25 → MEDS 07-15 06:02
PROVIDERS: Emergency Medicine; Family Medicine; Internal Medicine Critical Care Medicine; ADMIT Internal Medicine
PROC: 5A09357 Assistance with Respiratory Ventilation, Less than 24 Consecutive Hours, Continuous Positive Airway Pressure (ICD-10-PCS; principal; 2020-07-12)
PROC: 0BJ08ZZ Inspection of Tracheobronchial Tree, Via Natural or Artificial Opening Endoscopic (ICD-10-PCS; 2020-07-13)
DX: U07.0 Vaping-related disorder (principal); J96.01 Acute respiratory failure with hypoxia; J18.9 Pneumonia, unspecified organism; Z68.42 Body mass index [BMI] 45.0-49.9, adult; F31.9 Bipolar disorder, unspecified; Z20.828 Contact with and (suspected) exposure to other viral communicable diseases; F11.10 Opioid abuse, uncomplicated; F17.290 Nicotine dependence, other tobacco product, uncomplicated; E66.9 Obesity, unspecified
CPT/HCPCS: 0202U; 36415; 51702; 71045; 71046; 71260; 80048; 81003; 81025; 82728; 83605; 85025; 85379; 85610; 85651; 85730; 86701; 86702; 87040; 87070; 87205; 87449; 87804; 93005; 93010; 94660; 94664; 94667; 94761; 94762; 96372; 96374; 96375; 96376; 98960; 99285-25; 99406; A9270-GY; C1751; G0378; J0696; J1650; J2250; J2310; J2405; J2550; J2920; J3010; J7030; J7120; J7512; Q9967; U0002; U0003

== ENCOUNTER → 2020-08-16 | Outpatient (CLI) | payer OTHER ==
[~2020-08-16] MED LIST changes: +ABILIFY MYCITE5 M1 PO; +LACT PO; +LAMICTAL200 MG PO; +METH40 PO; +PROZAC40 MG PO
== END | disposition home or self-care (01) ==
LOC: LAB 18:14 → LAB SHORT 18:14
DX: L02.414 Cutaneous abscess of left upper limb (principal)
CPT/HCPCS: 87070; 87075; 87205

== ENCOUNTER 2020-09-30 09:28 | Emergency (ER) | payer OTHER ==
[~2020-09-30] VITALS: Ht 167.6 cm; Wt 140.6 kg
[2020-09-30 10:48] LABS: BASOPHILS ABSOLUTE AUTO 0.08 K/mm3 (0.00-0.23); BASOPHILS PERCENT AUTO 1 % (0-2); EOSINOPHILS ABSOLUTE AUTO 0.32 K/mm3 (0.00-0.68); EOSINOPHILS PERCENT AUTO 2 % (0-6); Hematocrit 42.8 % (33.0-51.0); Hemoglobin 13.3 g/dL (11.5-16.0); IMMATURE GRAN PERCENT AUTO 2 % (0-1); LYMPHOCYTES ABSOLUTE AUTO 3.51 K/mm3 (0.84-5.20); LYMPHOCYTES PERCENT AUTO 27 % (21-46); MONOCYTES ABSOLUTE AUTO 1.14 K/mm3 (0.16-1.47); MONOCYTES PERCENT AUTO 9 % (4-13); Mean Corpuscular HGB 28.1 pg (26.0-34.0); Mean Corpuscular HGB Conc 31.1 g/dL (31.5-36.5); Mean Corpuscular Volume 90 fL (80-100); Mean Platelet Volume 9.5 fL (9.1-12.4); NEUTROPHILS ABSOLUTE AUTO 7.98 K/mm3 (1.96-9.15); NEUTROPHILS PERCENT AUTO 60 % (41-73); Platelet Count 293 K/mm3 (150-400); RDW Coefficient Variation 13.5 % (11.7-14.2); RDW Standard Deviation 45.2 fL (35.1-46.3); Red Blood Cell Count 4.74 M/mm3 (3.80-5.20); White Blood Cell Count 13.23 K/mm3 (4.00-11.30)
[2020-09-30 11:01] LABS: Alanine Aminotransfer (ALT/SGP 63 U/L (12-78); Albumin/Globulin Ratio 0.8 (0.8-1.8); Alk Phos 154 U/L (50-136); Anion Gap 4 mmol/L (6-16); Aspartate Aminotrans (AST/SGOT 57 U/L (12-37); Bilirubin, Total 0.2 mg/dL (0.1-1.0); Blood Urea Nitrogen 14 mg/dL (8-24); Bun/Creatinine Ratio 21.1 (12.0-20.0); CO2, Blood 27 mmol/L (21-32); Calcium, Blood 8.5 mg/dL (8.5-10.1); Chloride, Blood 105 mmol/L (98-108); Creatinine, Blood 0.66 mg/dL (0.40-1.00); Globulin, Blood 3.9 g/dL (2.2-4.0); Glomerular Filtration Rate >60 (60-); Glucose, Blood 119 mg/dL (70-99); Potassium, Blood 4.8 mmol/L (3.5-5.5); Sodium, Blood 136 mmol/L (136-145); Total Protein, Blood 6.9 g/dL (6.4-8.2); Troponin I <0.015 ng/mL (0.000-0.040)
[2020-09-30] MEDS ORDERED: BISA10S PR (11:43)
[2020-09-30] MEDS ORDERED: Golytely Packe1 EACH PO (11:43)
== END 2020-09-30 12:26 | disposition home or self-care (01) ==
LOC: ER 09:28
PROVIDERS: Emergency Medicine
DX: K59.00 Constipation, unspecified (principal); K21.9 Gastro-esophageal reflux disease without esophagitis; J45.909 Unspecified asthma, uncomplicated; E11.9 Type 2 diabetes mellitus without complications; F31.9 Bipolar disorder, unspecified; F41.9 Anxiety disorder, unspecified; Z88.8 Allergy status to other drugs, medicaments and biological substances; Z88.1 Allergy status to other antibiotic agents; Z91.040 Latex allergy status; Z91.09 Other allergy status, other than to drugs and biological substances; Z79.899 Other long term (current) drug therapy
CPT/HCPCS: 36415; 74022; 80053; 84484; 85025; 93005; 93010; 99284-25

== ENCOUNTER 2020-10-31 08:30 | Inpatient (IN) | payer OTHER ==
[~2020-10-31 08:30] MED LIST changes: +BISA10S PR; +Golytely Packe1 EACH PO
[2020-10-31 09:40] LABS: BASOPHILS ABSOLUTE AUTO 0.04 K/mm3 (0.00-0.23); BASOPHILS PERCENT AUTO 0 % (0-2); EOSINOPHILS ABSOLUTE AUTO 0.09 K/mm3 (0.00-0.68); EOSINOPHILS PERCENT AUTO 1 % (0-6); Hematocrit 37.5 % (33.0-51.0); Hemoglobin 12.1 g/dL (11.5-16.0); IMMATURE GRAN ABSOLUTE AUTO 0.07 K/mm3 (0.00-0.10); IMMATURE GRAN PERCENT AUTO 1 % (0-1); LYMPHOCYTES ABSOLUTE AUTO 2.39 K/mm3 (0.84-5.20); LYMPHOCYTES PERCENT AUTO 17 % (21-46); MONOCYTES ABSOLUTE AUTO 0.51 K/mm3 (0.16-1.47); MONOCYTES PERCENT AUTO 4 % (4-13); Mean Corpuscular HGB 27.8 pg (26.0-34.0); Mean Corpuscular HGB Conc 32.3 g/dL (31.5-36.5); Mean Corpuscular Volume 86 fL (80-100); Mean Platelet Volume 9.4 fL (9.1-12.4); NEUTROPHILS ABSOLUTE AUTO 11.09 K/mm3 (1.96-9.15); NEUTROPHILS PERCENT AUTO 78 % (41-73); Platelet Count 274 K/mm3 (150-400); RDW Coefficient Variation 13.2 % (11.7-14.2); RDW Standard Deviation 41.7 fL (35.1-46.3); Red Blood Cell Count 4.35 M/mm3 (3.80-5.20); White Blood Cell Count 14.19 K/mm3 (4.00-11.30)
[2020-10-31 10:04] LABS: Alanine Aminotransfer (ALT/SGP 40 U/L (12-78); Albumin, Blood 3.5 g/dL (3.4-5.0); Albumin/Globulin Ratio 0.9 (0.8-1.8); Alk Phos 125 U/L (50-136); Anion Gap 6 mmol/L (6-16); Aspartate Aminotrans (AST/SGOT 49 U/L (12-37); Bilirubin, Total 0.5 mg/dL (0.1-1.0); Blood Urea Nitrogen 11 mg/dL (8-24); Bun/Creatinine Ratio 14.2 (12.0-20.0); CO2, Blood 25 mmol/L (21-32); Calcium, Blood 8.9 mg/dL (8.5-10.1); Chloride, Blood 106 mmol/L (98-108); Creatinine, Blood 0.78 mg/dL (0.40-1.00); Glomerular Filtration Rate >60 (60-); Glucose, Blood 119 mg/dL (70-99); Potassium, Blood 4.5 mmol/L (3.5-5.5); Sodium, Blood 137 mmol/L (136-145); Total Protein, Blood 7.5 g/dL (6.4-8.2); Troponin I <0.015 ng/mL (0.000-0.040)
[2020-10-31 10:33] LABS: Influenza A, PCR Negative (NEGATIVE); Influenza B, PCR Negative (NEGATIVE); Resp Syncytial Virus, PCR Negative (NEGATIVE); SARS-Cov-2 (COVID-19) PCR, MMC Negative (NEGATIVE)
[2020-10-31 13:19] LABS: U Amphetamine Screen Not Detected; U Barbituate Screen Not Detected; U Benzodiazapine Screen DETECTED; U Cannabinoids Screen Not Detected; U Cocaine Screen Not Detected; U Methadone Screen DETECTED; U Methamphetamine Screen DETECTED; U Opiates Screen Not Detected; U Phencyclidine Screen Not Detected
[2020-10-31 13:20] LABS: U Buprenorphine Screen Not Detected; U Oxycodone Screen Not Detected; U Propoxyphene Screen Not Detected
--- NOTE | 2020-10-31 19:30 | NUR ---
SHIFT SUMMARY: PATIENT ADMIT (OBS) FROM ED THIS SHIFT. PT A&O; CALM AND COOPERATIVE WITH CARE; INDEPENDENT IN ROOM. PATIENT ON O2 @ 2L; ROOM AIR AT HOME. R/T FOLLOWING. REPORT GIVEN TO ONCOMING RN.
--- NOTE | 2020-11-01 04:34 | NUR ---
THRESHING DEPARTMENT SUPERVISOR SUMMARY PT A&OX4, ABLE TO MAKE NEEDS KNOWN, PLEASANT AND COOPERATIVE TO CARE. NO C/O PAIN THIS SHIFT. DENIES CP OR N&V. PT CURRENTLY ON O2 4LPM VIA NC, CONT BIOX, SATS AT 94% AT THIS TIME. SOB NOTE WITH EXERTION, LS DIM T/O. PT REFUSED TO WEAR CPAP THIS SHIFT D/T BEING UNCOMFORTABLE WEARING IT DURING SLEEP. RT NOTIFIED. PT CALM AND RESTED IN BED AT THIS TIME. BED AT LOWEST POSITION, CALL LIGHT WITHIN REACH.
[2020-11-01 06:04] LABS: BASOPHILS ABSOLUTE AUTO 0.01 K/mm3 (0.00-0.23); BASOPHILS PERCENT AUTO 0 % (0-2); EOSINOPHILS PERCENT AUTO 0 % (0-6); Hematocrit 39.3 % (33.0-51.0); Hemoglobin 12.2 g/dL (11.5-16.0); IMMATURE GRAN ABSOLUTE AUTO 0.06 K/mm3 (0.00-0.10); IMMATURE GRAN PERCENT AUTO 1 % (0-1); LYMPHOCYTES ABSOLUTE AUTO 1.26 K/mm3 (0.84-5.20); LYMPHOCYTES PERCENT AUTO 11 % (21-46); MONOCYTES ABSOLUTE AUTO 0.14 K/mm3 (0.16-1.47); MONOCYTES PERCENT AUTO 1 % (4-13); Mean Corpuscular HGB 27.4 pg (26.0-34.0); Mean Corpuscular Volume 88 fL (80-100); Mean Platelet Volume 9.9 fL (9.1-12.4); NEUTROPHILS ABSOLUTE AUTO 10.26 K/mm3 (1.96-9.15); NEUTROPHILS PERCENT AUTO 88 % (41-73); Platelet Count 271 K/mm3 (150-400); RDW Coefficient Variation 13.2 % (11.7-14.2); RDW Standard Deviation 42.8 fL (35.1-46.3); Red Blood Cell Count 4.45 M/mm3 (3.80-5.20); White Blood Cell Count 11.73 K/mm3 (4.00-11.30)
--- NOTE | 2020-11-01 18:29 | NUR ---
SHIFT SUMMARY PT A/O X4 AND IND IN THE ROOM. PT ABLE TO MAKE NEEDS KNOWN. CURRENTLY ON 4 LITERS O2 VIA NC. PT REPORTS FEELING LESS DYSPNEIC THAN PREVIOUS. RESIDENT OF [place] AND GETTING METHADONE. THE GOAL IS TO CONTINUE TO TITRATE 02 DOWN SO THAT THE PT CAN DISCHARGE BACK TO [place]. NO ACUTE CHANGES THIS SHIFT. VSS; CALL LIGHT IN REACH.
[2020-11-02 04:59] LABS: BASOPHILS ABSOLUTE AUTO 0.03 K/mm3 (0.00-0.23); BASOPHILS PERCENT AUTO 0 % (0-2); EOSINOPHILS ABSOLUTE AUTO 0.01 K/mm3 (0.00-0.68); EOSINOPHILS PERCENT AUTO 0 % (0-6); Hematocrit 37.1 % (33.0-51.0); Hemoglobin 11.9 g/dL (11.5-16.0); IMMATURE GRAN ABSOLUTE AUTO 0.23 K/mm3 (0.00-0.10); IMMATURE GRAN PERCENT AUTO 1 % (0-1); LYMPHOCYTES ABSOLUTE AUTO 1.74 K/mm3 (0.84-5.20); LYMPHOCYTES PERCENT AUTO 8 % (21-46); MONOCYTES PERCENT AUTO 2 % (4-13); Mean Corpuscular HGB Conc 32.1 g/dL (31.5-36.5); Mean Corpuscular Volume 87 fL (80-100); Mean Platelet Volume 9.6 fL (9.1-12.4); NEUTROPHILS ABSOLUTE AUTO 20.22 K/mm3 (1.96-9.15); NEUTROPHILS PERCENT AUTO 89 % (41-73); Platelet Count 336 K/mm3 (150-400); RDW Coefficient Variation 13.4 % (11.7-14.2); RDW Standard Deviation 42.5 fL (35.1-46.3); Red Blood Cell Count 4.25 M/mm3 (3.80-5.20); White Blood Cell Count 22.73 K/mm3 (4.00-11.30)
[2020-11-02 05:14] LABS: Anion Gap 9 mmol/L (6-16); Blood Urea Nitrogen 18 mg/dL (8-24); Bun/Creatinine Ratio 24.7 (12.0-20.0); CO2, Blood 22 mmol/L (21-32); Chloride, Blood 107 mmol/L (98-108); Creatinine, Blood 0.73 mg/dL (0.40-1.00); Glomerular Filtration Rate >60 (60-); Glucose, Blood 152 mg/dL (70-99); Potassium, Blood 4.5 mmol/L (3.5-5.5); Sodium, Blood 138 mmol/L (136-145)
--- NOTE | 2020-11-02 05:41 | NUR ---
SHIFT SUMMARY PATIENT HAS SLEPT FOR A FEW HOURS AT A TIME. STATES THAT SHE HAS BEEN USING THE I/S AND FLUTTER VALVE WHEN SHE WAKES. SHE IS NOW ON 2L NC AND SATS 93-95%. ONCE IN THE NIGHT HER O2 WAS OFF WHILE ASLEEP, BIOX PROBE SHOWED 89% ON RA. SHE HAS A VERY PRODUCTIVE WET SOUNDING COUGH THIS MORNING. SHE ALSO STATES THAT SHE IS FEELING A BIT BETTER WITH HER LUNGS, BUT CONTIUNES TO BE SOB TO THE BR. NO ACUTE CHANGES, AND CALL LIGHT IN REACH.
--- NOTE | 2020-11-02 16:23 | NUR ---
AMBULATED IN THE [place]RR[place] PT WALKED DOWN THE UNIT FRONT URRUTIA STARTED OUT AT 91% ON RA, PTS O2 SATS DROPPED DOWN LOW 85% WITH AMBULATION ADJUSTED PTS O2 UP 1L/MIN AT A TIME UNTIL THE PT WAS ABOVE 90% , PT WAS AT 93% WITH 4L/MIN O2 WITH ACTIVITY, DR. MCKEON WAS CALLED WITH THE RESULTS SHE ASKED
--- NOTE | 2020-11-02 16:59 | NUR ---
PT IS A/OX3, PLEASANT AND COOPERATIVE, THE PT IS UP IND IN HER ROOM , THE PT AT REST APPEARS TO BE BREATHING EASILY ON RA, HOWEVER, WITH ACTIVITY HE O2 SAT'S DROP INTO THE MID 80'S, THE PT AMBULATED DOWN THE URRUTIA TODAY AND REQUIRED 4L/MIN TO KEEP HER O2 SAT ABOVE 90%, THE PT WAS MEDICATED THIS AM WITH METHADONE 120MG, AND REPORTED GOOD PAIN CONTROL T/O THE DAY, PT DENIED ANY N/V SO FAR THIS SHIFT, CALL LIGHT IN REACH, WILL CONTINUE TO MONITOR AND ASSESS FOR CHANGES
--- NOTE | 2020-11-03 05:37 | NUR ---
SHIFT SUMMARY PT HAS RESTED MOST OF THE NIGHT. PT STILL SOB WITH EXERTION, SHE HAS BEEN ON RA. SATS WNL. COUGH IS NOW MOIST AND PRODUCTIVE. PT HAD A PRETTY SEVERE MIGRANE THIS SHIFT. SHE REPORTS HISTORY OF MIGRANES. PT HAS HAD PHOTOSENSITIVITY, AND N/V. MEDICATED WITH TYLENOL X2 AND FENTANYL. PT HAS BEEN INDEPENDENT IN THE ROOM, AND HAS RESTED IN BED MOST OF THE NIGHT. ASIDE FROM MIGRANE, ASSESSMENT OTHERWISE UNCHANGED. BED IN LOWEST POSITION, CALL LIGHT WITHIN REACH.
--- NOTE | 2020-11-03 15:46 | NUR ---
PT AMBULATED IN URRUTIA PT AMBULATED IN HALLWAY AROUND THE MEDICAL FLOOR LOOP, PT STARTED OUT ON ROOM AIR, AFTER APROX 100 FT, THE PT DESATED TO 87%, O2 WAS APPLIED AT 2L, PT WAS ABLE TO COMPLETE THE WALK ON 2L/MIN FOR APROX 300 FT O2 STA'S GREATER THAN 90%, BACK IN THE ROOM AFTER THE WALK THE PT TOOK OFF THE O2 AND QUIKLY RECOVERED TO GREATER THAN 90% ON RA
--- NOTE | 2020-11-03 16:21 | NUR ---
PT IS A/OX3, PLEASANT AND COOPERATIVE, THE PT IS UP IND IN HER ROOM, PT IS SOB WITH ACTIVITY, THE PT REPORTS IMPROVEMENT OF HER BREATHING TODAY, THE PT AMBULATED AROUND THE MEDICAL URRUTIA LOOP REQUIRING ONLY 2L/MIN O2 DOWN FROM 4L/MIN O2 YESTERDAY, AT REST THE PT IS > 90% ON RA, THE PT HAD A GUZMAN THIS AM THAT EVENTUALLY WENT AWAY AFTER A SHOWER, THE PTS WAS IN TO SEE HER TODAY, CALL LIGHT IN REACH, NO OTHER CHANGES NOTICED THIS SHIFT
--- NOTE | 2020-11-04 04:41 | NUR ---
SHIFT SUMMARY PT HAS RESTED MOST OF THE NIGHT. SHE HAS DONE WELL ON RA, STILL SOME SOB WITH EXERTION. LUNGS ARE DIMINISHED T/O. IV SOLUMEDROL CONTINUED ORDERED. PLAN IS FOR DISCHARGE TODAY. PT HAS SOME CONCERNS ABOUT DISCHARING TO [facility] TOMORROW D/T THE SOB SHE HAS WITH ACTIVITY. PT STATES SHE HAS DONE WELL AMBULATING IN THE HALLWAY HERE AT THE HOSPITAL BUT SHE FEARS AMBULATING UP THE [place] TO THE BUILDING AT [place], SHE FEELS SHE IS NOT PHYSICALLY ABLE TO DO THAT WITH HER CURRENT RESPIRATORY STATUS, AND FEARS SHE WILL JUST END UP BACK IN THE HOSPITAL. WILL DISCUSS PAITENT CONCERNS WITH DAYSHIFT RN SO THAT IT CAN BE ADRESSED WITH ATTENDING. PT HAS BEEN PLESANT AND COOPERATIVE, HAPPY ABOUT THE PROSPECT OF DC TODAY. BED IN LOWEST POSITION, CALL LIGHT WITHIN REACH.
[2020-11-04] MEDS ORDERED: NICO21TP TOP (14:03)
[2020-11-04] MEDS ORDERED: NICO2 PO ×2 (14:04→14:09)
[2020-11-04] MEDS ORDERED: IPRAT-ALBUT 0.5-3 ML NEB (14:13)
--- NOTE | 2020-11-04 15:18 | NUR ---
PT WAS DISCHARGED TO [facility] VIA WHEELCHAIR AND CURBSIDE PICKUP AT THE EMERGENCY ENTRANCE. PT WAS ALERT AND ORIENTED, MADE NO COMPLIANTS OF SOB OR CHEST PAIN. PT WAS EDUCATED ON FU APPOINTMENTS NEEDED WITH ADAPT FOR BH TREATMENT AND EDUCATED ON REASONS TO QUIT USING VAPE ELECTRONIC SMOKING DEVICES. PT IV WAS DC'D AND WNL AND BELONGINGS WERE COLLECTED. CHARGE WAS NOTIFIED OF DC.
== END 2020-11-04 14:53 | disposition home or self-care (01) | DRG 205 ==
LOC: ER 08:30 → ERHOLD 08:31 → MEDS 08:31
PROVIDERS: Emergency Medicine; Family Medicine; Nurse Practitioner Acute Care; Physician Assistant; ADMIT Internal Medicine
DX: U07.0 Vaping-related disorder (principal); J96.01 Acute respiratory failure with hypoxia; F15.20 Other stimulant dependence, uncomplicated; Z68.42 Body mass index [BMI] 45.0-49.9, adult; Z20.828 Contact with and (suspected) exposure to other viral communicable diseases; Z86.14 Personal history of Methicillin resistant Staphylococcus aureus infection; Z86.19 Personal history of other infectious and parasitic diseases; F31.9 Bipolar disorder, unspecified; E11.9 Type 2 diabetes mellitus without complications; K21.9 Gastro-esophageal reflux disease without esophagitis; G47.33 Obstructive sleep apnea (adult) (pediatric); Z85.41 Personal history of malignant neoplasm of cervix uteri; F17.210 Nicotine dependence, cigarettes, uncomplicated; F41.8 Other specified anxiety disorders; F19.10 Other psychoactive substance abuse, uncomplicated; E66.01 Morbid (severe) obesity due to excess calories; Z91.19 Patient's noncompliance with other medical treatment and regimen; J45.909 Unspecified asthma, uncomplicated
CPT/HCPCS: 0241U; 36415; 71045; 71260; 80048; 80053; 83605; 83880; 84484; 85025; 85379; 87040; 93005; 93010; 94640; 94660; 94760; 94761; 94762; 96372; 96374; 96376; 99285-25; A9270; C1751; G0008; G0378; J1650; J2930; J3010; J7512; Q2038; Q9967

== ENCOUNTER 2020-11-04 17:58 | Emergency (ER) | payer OTHER ==
[~2020-11-04] VITALS: Ht 167.6 cm; Wt 141.5 kg
[~2020-11-04 17:58] MED LIST changes: +IPRAT-ALBUT 0.5-3 ML NEB; +NICO2 PO; +NICO21TP TOP
== END 2020-11-04 19:30 | disposition left against medical advice (07) ==
LOC: ER 17:58
DX: Z53.21 Procedure and treatment not carried out due to patient leaving prior to being seen by health care provider (principal)

== ENCOUNTER → 2020-12-24 | Outpatient (CLI) | payer OTHER ==
[~2020-12-24] MED LIST changes: +PREG25 PO
== END | disposition home or self-care (01) ==
LOC: PLD 17:39 → LAB 17:39 → LAB SHORT 17:39
DX: L02.211 Cutaneous abscess of abdominal wall (principal); B95.62 Methicillin resistant Staphylococcus aureus infection as the cause of diseases classified elsewhere
CPT/HCPCS: 87070; 87075; 87205

== ENCOUNTER 2020-12-31 23:07 | Emergency (ER) | payer OTHER ==
[~2020-12-31] VITALS: Ht 167.6 cm; Wt 138.3 kg
[~2020-12-31 23:07] MED LIST changes: -PREG25 PO
[2020-12-31] MEDS ORDERED: PREG25 PO (23:28)
[2021-01-01 00:51] LABS: Source, Urine Clean Catch
[2021-01-01 00:58] LABS: Appearance, Urine Clear (Clear); Bilirubin, Urine Neg (Neg); Blood, Urine 2+ (Neg); Color, Urine Yellow (P-Yellow); Glucose Qualitative, Urine Neg (Neg); Ketones, Urine Neg (Neg); Leukocyte Esterase, Urine 1+ (Neg); Nitrite, Urine Neg (Neg); Protein, Urine Neg (Neg); Urobilinogen, Urine 1+ (Normal)
[2021-01-01 01:13] LABS: Bacteria Few /hpf; Red Blood Cells, Urine 0-2 /hpf (0-2); Squamous Epithelial Cells Few /hpf (Few); U Amphetamine Screen DETECTED; U Barbituate Screen Not Detected; U Benzodiazapine Screen DETECTED; U Methadone Screen DETECTED; U Methamphetamine Screen DETECTED; U Opiates Screen DETECTED; White Blood Cells, Urine 0-2 /hpf (0-5)
[2021-01-01 01:14] LABS: U Buprenorphine Screen Not Detected; U Cannabinoids Screen Not Detected; U Cocaine Screen Not Detected; U Oxycodone Screen Not Detected; U Phencyclidine Screen Not Detected; U Propoxyphene Screen Not Detected
[2021-01-01] MEDS ORDERED: AMOCLA875 PO (02:13)
[2021-03-17] MEDS ORDERED: Bactrim Ds Tab1 EACH PO (22:50)
[2021-03-17] MEDS ORDERED: CEPH500 PO (22:50)
== END 2021-01-01 02:49 | disposition home or self-care (01) ==
LOC: ER 23:07
PROVIDERS: Emergency Medicine
DX: S02.32XA Fracture of orbital floor, left side, initial encounter for closed fracture (principal); S02.2XXA Fracture of nasal bones, initial encounter for closed fracture; F15.129 Other stimulant abuse with intoxication, unspecified; J18.9 Pneumonia, unspecified organism; Z79.899 Other long term (current) drug therapy; Z91.040 Latex allergy status; Z88.1 Allergy status to other antibiotic agents; Z88.8 Allergy status to other drugs, medicaments and biological substances; Z91.09 Other allergy status, other than to drugs and biological substances; V03.90XA Pedestrian on foot injured in collision with car, pick-up truck or van, unspecified whether traffic or nontraffic accident, initial encounter; Y92.410 Unspecified street and highway as the place of occurrence of the external cause
CPT/HCPCS: 70450; 71045; 72100; 72125; 81001; 87086; 99284-25; A9270

== ENCOUNTER → 2021-07-15 | Outpatient (CLI) | payer OTHER ==
[~2021-07-15] MED LIST changes: +PREG25 PO
== END ==
LOC: LAB 15:16 → LAB SHORT 15:16
DX: N89.8 Other specified noninflammatory disorders of vagina (principal); Z88.1 Allergy status to other antibiotic agents; Z88.8 Allergy status to other drugs, medicaments and biological substances; Z91.040 Latex allergy status; Z91.048 Other nonmedicinal substance allergy status
CPT/HCPCS: 87070; 87205

== ENCOUNTER 2021-08-02 17:33 | Emergency (ER) | payer OTHER ==
[~2021-08-02] VITALS: Ht 167.6 cm; Wt 140.6 kg
[2021-08-02] MEDS ORDERED: ABILIFY MYCITE2 M2 (17:42)
[2021-08-02] MEDS ORDERED: CEPH500 PO (20:04)
== END 2021-08-02 20:15 | disposition home or self-care (01) ==
LOC: ER 17:33
DX: L02.413 Cutaneous abscess of right upper limb (principal); D64.9 Anemia, unspecified; J45.909 Unspecified asthma, uncomplicated; E11.9 Type 2 diabetes mellitus without complications; K21.9 Gastro-esophageal reflux disease without esophagitis; F17.200 Nicotine dependence, unspecified, uncomplicated; Z88.8 Allergy status to other drugs, medicaments and biological substances; Z88.1 Allergy status to other antibiotic agents; Z91.040 Latex allergy status; Z91.048 Other nonmedicinal substance allergy status; Z79.899 Other long term (current) drug therapy
CPT/HCPCS: 36415; 99283; A9270

== ENCOUNTER 2021-08-09 10:42 | Emergency (ER) | payer OTHER ==
[~2021-08-09] VITALS: Ht 167.6 cm; Wt 141.1 kg
[~2021-08-09 10:42] MED LIST changes: +ABILIFY MYCITE2 M2
[2021-08-09] MEDS ORDERED: SULTRIDS PO (11:05)
[2021-08-09 12:18] LABS: BASOPHILS ABSOLUTE AUTO 0.05 K/mm3 (0.00-0.23); BASOPHILS PERCENT AUTO 0 % (0-2); EOSINOPHILS ABSOLUTE AUTO 0.27 K/mm3 (0.00-0.68); EOSINOPHILS PERCENT AUTO 2 % (0-6); Hematocrit 39.8 % (33.0-51.0); Hemoglobin 13.1 g/dL (11.5-16.0); IMMATURE GRAN ABSOLUTE AUTO 0.07 K/mm3 (0.00-0.10); IMMATURE GRAN PERCENT AUTO 1 % (0-1); LYMPHOCYTES PERCENT AUTO 36 % (21-46); MONOCYTES ABSOLUTE AUTO 0.88 K/mm3 (0.16-1.47); MONOCYTES PERCENT AUTO 6 % (4-13); Mean Corpuscular HGB 27.8 pg (26.0-34.0); Mean Corpuscular HGB Conc 32.9 g/dL (31.5-36.5); Mean Corpuscular Volume 84 fL (80-100); Mean Platelet Volume 9.4 fL (9.1-12.4); NEUTROPHILS ABSOLUTE AUTO 8.08 K/mm3 (1.96-9.15); NEUTROPHILS PERCENT AUTO 56 % (41-73); Platelet Count 278 K/mm3 (150-400); RDW Coefficient Variation 14.4 % (11.7-14.2); RDW Standard Deviation 44.2 fL (35.1-46.3); Red Blood Cell Count 4.72 M/mm3 (3.80-5.20); White Blood Cell Count 14.55 K/mm3 (4.00-11.30)
[2021-08-09 12:33] LABS: Anion Gap 7 mmol/L (6-16); Blood Urea Nitrogen 12 mg/dL (8-24); Bun/Creatinine Ratio 14.9 (12.0-20.0); CO2, Blood 22 mmol/L (21-32); Calcium, Blood 8.6 mg/dL (8.5-10.1); Chloride, Blood 107 mmol/L (98-108); Glomerular Filtration Rate >60 (60-); Glucose, Blood 105 mg/dL (70-99); Potassium, Blood 3.9 mmol/L (3.5-5.5); Sodium, Blood 136 mmol/L (136-145)
== END 2021-08-09 15:15 | disposition home or self-care (01) ==
LOC: ER 10:42
PROVIDERS: Student in an Organized Health Care Education/Training Program
DX: L02.512 Cutaneous abscess of left hand (principal); L02.511 Cutaneous abscess of right hand; L03.114 Cellulitis of left upper limb; L03.113 Cellulitis of right upper limb; F11.10 Opioid abuse, uncomplicated; G43.909 Migraine, unspecified, not intractable, without status migrainosus; D64.9 Anemia, unspecified; J45.909 Unspecified asthma, uncomplicated; E11.9 Type 2 diabetes mellitus without complications; F31.9 Bipolar disorder, unspecified; K21.9 Gastro-esophageal reflux disease without esophagitis; F17.290 Nicotine dependence, other tobacco product, uncomplicated; Z88.1 Allergy status to other antibiotic agents; Z91.048 Other nonmedicinal substance allergy status; Z91.040 Latex allergy status; Z88.8 Allergy status to other drugs, medicaments and biological substances; Z79.899 Other long term (current) drug therapy; Z86.14 Personal history of Methicillin resistant Staphylococcus aureus infection
CPT/HCPCS: 10061; 36415; 80048; 85025; 96365-59; 96366-59; 96372-59; 99283-25; A9270; J1885; J3370; J7050

== ENCOUNTER 2021-08-11 20:17 | Emergency (ER) | payer OTHER ==
[~2021-08-11] VITALS: Ht 167.6 cm; Wt 141.1 kg
[2021-08-11] MEDS ORDERED: CEFP200 PO (21:31)
[2021-08-11] MEDS ORDERED: Cleocin HCl300 MG PO (21:31)
[2021-08-11] MEDS ORDERED: ONDA4ODT MM (21:31)
[2021-08-11] MEDS ORDERED: SYMBICORT 160-4.6 GM INH (22:14)
[2021-08-11] MEDS ORDERED: ALBU90OI INH (22:14)
== END 2021-08-11 22:25 | disposition home or self-care (01) ==
LOC: ER 20:17
DX: L03.113 Cellulitis of right upper limb (principal); F11.10 Opioid abuse, uncomplicated; D64.9 Anemia, unspecified; E11.9 Type 2 diabetes mellitus without complications; J45.909 Unspecified asthma, uncomplicated; K21.9 Gastro-esophageal reflux disease without esophagitis; F17.290 Nicotine dependence, other tobacco product, uncomplicated; Z88.8 Allergy status to other drugs, medicaments and biological substances; Z88.1 Allergy status to other antibiotic agents; Z91.040 Latex allergy status; Z91.048 Other nonmedicinal substance allergy status; Z79.899 Other long term (current) drug therapy
CPT/HCPCS: 96372; 99283-25; A9270; J0696; J1885

== ENCOUNTER 2021-09-04 00:49 | Day surgery (SDC) | payer OTHER ==
[~2021-09-04 00:49] MED LIST changes: +ALBU90OI INH; +ONDA4ODT MM; +SYMBICORT 160-4.6 GM INH
== END 2021-09-04 23:20 | disposition home or self-care (01) ==
LOC: WOUND 00:49
DX: L02.511 Cutaneous abscess of right hand (principal); L03.113 Cellulitis of right upper limb; F11.20 Opioid dependence, uncomplicated; Z88.1 Allergy status to other antibiotic agents; Z88.8 Allergy status to other drugs, medicaments and biological substances
CPT/HCPCS: A9270; G0463

== ENCOUNTER 2021-09-12 05:17 | Day surgery (SDC) | payer OTHER | END 2021-09-12 23:33 | disposition home or self-care (01) | LOC: WOUND 05:17 | DX: S61.431D Puncture wound without foreign body of right hand, subsequent encounter (principal); X58.XXXD Exposure to other specified factors, subsequent encounter; R22.9 Localized swelling, mass and lump, unspecified; L02.511 Cutaneous abscess of right hand; F11.20 Opioid dependence, uncomplicated; Z88.1 Allergy status to other antibiotic agents; Z88.8 Allergy status to other drugs, medicaments and biological substances | CPT/HCPCS: A9270; G0463 ==

== ENCOUNTER 2021-10-06 03:37 | Day surgery (SDC) | payer OTHER | END 2021-10-06 23:04 | disposition home or self-care (01) | LOC: WOUND 03:37 | DX: S61.431D Puncture wound without foreign body of right hand, subsequent encounter (principal); X58.XXXD Exposure to other specified factors, subsequent encounter; L02.511 Cutaneous abscess of right hand; R22.9 Localized swelling, mass and lump, unspecified; F11.20 Opioid dependence, uncomplicated; N61.0 Mastitis without abscess | CPT/HCPCS: A9270; G0463 ==

== ENCOUNTER 2021-12-12 21:30 | Inpatient (IN) | payer OTHER ==
[~2021-12-12] VITALS: Ht 167.6 cm; Wt 149.1 kg
[~2021-12-12 21:30] MED LIST changes: -ABILIFY MYCITE2 M2; +ABILIFY MYCITE2 M2 PO
[2021-12-12 22:22] LABS: BASOPHILS PERCENT AUTO 1 % (0-2); EOSINOPHILS ABSOLUTE AUTO 0.26 K/mm3 (0.00-0.68); EOSINOPHILS PERCENT AUTO 1 % (0-6); Hemoglobin 13.2 g/dL (11.5-16.0); IMMATURE GRAN ABSOLUTE AUTO 0.14 K/mm3 (0.00-0.10); IMMATURE GRAN PERCENT AUTO 1 % (0-1); LYMPHOCYTES ABSOLUTE AUTO 3.62 K/mm3 (0.84-5.20); LYMPHOCYTES PERCENT AUTO 17 % (21-46); MONOCYTES ABSOLUTE AUTO 0.76 K/mm3 (0.16-1.47); MONOCYTES PERCENT AUTO 4 % (4-13); Mean Corpuscular HGB 27.8 pg (26.0-34.0); Mean Corpuscular Volume 84 fL (80-100); NEUTROPHILS ABSOLUTE AUTO 16.67 K/mm3 (1.96-9.15); NEUTROPHILS PERCENT AUTO 77 % (41-73); NRBC ABSOLUTE 0.02 K/mm3 (0.00-0.02); NRBC Auto 0.1 /100 WBC (0.0-0.2); RDW Coefficient Variation 13.8 % (11.7-14.2); Red Blood Cell Count 4.75 M/mm3 (3.80-5.20); White Blood Cell Count 21.55 K/mm3 (4.00-11.30)
[2021-12-12 22:24] LABS: Mean Platelet Volume 10.3 fL (9.1-12.4); Platelet Count 312 K/mm3 (150-400)
[2021-12-12 22:44] LABS: Alanine Aminotransfer (ALT/SGP 18 U/L (12-78); Albumin, Blood 2.6 g/dL (3.4-5.0); Albumin/Globulin Ratio 0.5 (0.8-1.8); Alk Phos 130 U/L (50-136); Anion Gap 8 mmol/L (6-16); Aspartate Aminotrans (AST/SGOT 30 U/L (12-37); Bilirubin, Total 0.2 mg/dL (0.1-1.0); Blood Urea Nitrogen 9 mg/dL (8-24); Bun/Creatinine Ratio 11.2 (12.0-20.0); CO2, Blood 20 mmol/L (21-32); Calcium, Blood 8.1 mg/dL (8.5-10.1); Chloride, Blood 106 mmol/L (98-108); Creatinine, Blood 0.81 mg/dL (0.40-1.00); Glomerular Filtration Rate >60 (60-); Glucose, Blood 104 mg/dL (70-99); Potassium, Blood 4.2 mmol/L (3.5-5.5); Sodium, Blood 134 mmol/L (136-145); Total Protein, Blood 7.6 g/dL (6.4-8.2); Troponin I <0.015 ng/mL (0.000-0.040)
[2021-12-13 00:45] LABS: U Amphetamine Screen DETECTED; U Barbituate Screen Not Detected; U Benzodiazapine Screen DETECTED; U Buprenorphine Screen Not Detected; U Cannabinoids Screen Not Detected; U Cocaine Screen Not Detected; U Methadone Screen DETECTED; U Methamphetamine Screen DETECTED; U Opiates Screen DETECTED; U Oxycodone Screen Not Detected; U Phencyclidine Screen Not Detected; U Propoxyphene Screen Not Detected
[2021-12-13 03:51] LABS: Influenza A, PCR NEGATIVE (NEGATIVE); Influenza B, PCR NEGATIVE (NEGATIVE); Resp Syncytial Virus, PCR NEGATIVE (NEGATIVE); SARS-Cov-2 (COVID-19) PCR, MMC NEGATIVE (NEGATIVE)
[2021-12-13 05:43] LABS: BASOPHILS ABSOLUTE AUTO 0.06 K/mm3 (0.00-0.23); BASOPHILS PERCENT AUTO 0 % (0-2); EOSINOPHILS PERCENT AUTO 1 % (0-6); Hematocrit 35.5 % (33.0-51.0); Hemoglobin 11.4 g/dL (11.5-16.0); IMMATURE GRAN ABSOLUTE AUTO 0.16 K/mm3 (0.00-0.10); IMMATURE GRAN PERCENT AUTO 1 % (0-1); LYMPHOCYTES ABSOLUTE AUTO 3.51 K/mm3 (0.84-5.20); LYMPHOCYTES PERCENT AUTO 18 % (21-46); MONOCYTES PERCENT AUTO 3 % (4-13); Mean Corpuscular HGB 27.5 pg (26.0-34.0); Mean Corpuscular HGB Conc 32.1 g/dL (31.5-36.5); Mean Corpuscular Volume 86 fL (80-100); Mean Platelet Volume 9.7 fL (9.1-12.4); NEUTROPHILS ABSOLUTE AUTO 15.31 K/mm3 (1.96-9.15); NEUTROPHILS PERCENT AUTO 77 % (41-73); Platelet Count 278 K/mm3 (150-400); RDW Coefficient Variation 14.1 % (11.7-14.2); RDW Standard Deviation 43.7 fL (35.1-46.3); Red Blood Cell Count 4.14 M/mm3 (3.80-5.20); White Blood Cell Count 19.84 K/mm3 (4.00-11.30)
[2021-12-13 06:52] LABS: Anion Gap 7 mmol/L (6-16); Blood Urea Nitrogen 9 mg/dL (8-24); Bun/Creatinine Ratio 10.6 (12.0-20.0); CO2, Blood 23 mmol/L (21-32); Calcium, Blood 7.8 mg/dL (8.5-10.1); Chloride, Blood 106 mmol/L (98-108); Creatinine, Blood 0.85 mg/dL (0.40-1.00); Glomerular Filtration Rate >60 (60-); Glucose, Blood 129 mg/dL (70-99); Potassium, Blood 3.8 mmol/L (3.5-5.5); Sodium, Blood 136 mmol/L (136-145)
--- NOTE | 2021-12-13 07:21 | NUR ---
BRUNILDA ARRIVED ON FLOOR EXHAUSTED BUT A&Ox4. AFTER MEAL, PATIENT WAS COOPERATIVE IN PHYSICAL ASSESSMENT, ANSWERED QUESTIONS APPROPRIATEY WITH EXCEPTION OF BEING ABLE TO REMEMBER WHICH ANTIBIOTICS SHE WAS CURRENTLY TAKING, DOSES OF SEVERAL OF HER DAILY MEDICATIONS. nO COMPLAINTS OF DISCOMFORT, VERY COMFORTABLE AFTER EATING DINNER AND WAS ABLE TO AMBULATE INDEPENDENTLY INTO THE BATHROOM TO VOID. ONCOMING RN INFORMED OF NEED FOR CLARIFICATION ON MED REC.
--- NOTE | 2021-12-13 13:04 | NUR ---
CALLED AND GAVE REPORT TO ALEXANDRA VENDING MACHINE COLLECTOR. PATIENT TO TRANSFER TO PCU 3.
--- NOTE | 2021-12-13 13:13 | NUR ---
TRANSFER UPDATE REPORT RECIEVED FROM MEDICAL FLOOR RN AT 1310. PT ARRIVED VIA HOSPITAL BED AT 1314.
--- NOTE | 2021-12-13 13:48 | NUR ---
UPDATE CONTACTED DR ABOUT PT REPORTING PAIN. DR TO PUT IN ORDERS FOR TYLENOL AND INSTRUCTED RN TO USE ICEPACKS.
--- NOTE | 2021-12-13 19:20 | NUR ---
SHIFT SUMMARY PT A/O X4 AND COOPERATIVE OF CARE. PT O2 SATS DROPPED TO 80'S, CASTING TECHNICIAN NOTIFIED THIS RN WHILE THIS RN WAS IN ANOTHER PT ROOM. PT WAS ON 14 L HFNC. CHARGE NURSE WENT TO PT ROOM AND HAD PT SIT UP, SATS INCREASED TO 90'S AND BEGAN TO DIP BACK TO 80'S. CHARGE NURSE CONTACTED RT, PT SWITCHED TO AIRVO. PT PLANNING TO GO TO PROCEDURE FOR ABCESS ON LEFT ARM IN AM, NPO AFTER MIDNIGHT. NO REPORT OF CHEST PAIN/PRESSURE SINCE ARRIVAL TO UNIT.
[2021-12-14 04:45] LABS: BASOPHILS ABSOLUTE AUTO 0.03 K/mm3 (0.00-0.23); BASOPHILS PERCENT AUTO 0 % (0-2); EOSINOPHILS PERCENT AUTO 0 % (0-6); Hematocrit 33.8 % (33.0-51.0); Hemoglobin 10.8 g/dL (11.5-16.0); IMMATURE GRAN ABSOLUTE AUTO 0.14 K/mm3 (0.00-0.10); IMMATURE GRAN PERCENT AUTO 1 % (0-1); LYMPHOCYTES ABSOLUTE AUTO 1.37 K/mm3 (0.84-5.20); LYMPHOCYTES PERCENT AUTO 8 % (21-46); MONOCYTES ABSOLUTE AUTO 0.22 K/mm3 (0.16-1.47); MONOCYTES PERCENT AUTO 1 % (4-13); Mean Corpuscular HGB 27.2 pg (26.0-34.0); Mean Corpuscular Volume 85 fL (80-100); Mean Platelet Volume 9.4 fL (9.1-12.4); NEUTROPHILS ABSOLUTE AUTO 15.26 K/mm3 (1.96-9.15); NEUTROPHILS PERCENT AUTO 90 % (41-73); Platelet Count 302 K/mm3 (150-400); RDW Standard Deviation 43.9 fL (35.1-46.3); Red Blood Cell Count 3.97 M/mm3 (3.80-5.20); White Blood Cell Count 17.02 K/mm3 (4.00-11.30)
[2021-12-14 05:15] LABS: Alanine Aminotransfer (ALT/SGP 15 U/L (12-78); Albumin, Blood 2.2 g/dL (3.4-5.0); Albumin/Globulin Ratio 0.5 (0.8-1.8); Alk Phos 102 U/L (50-136); Anion Gap 4 mmol/L (6-16); Aspartate Aminotrans (AST/SGOT 40 U/L (12-37); Bilirubin, Total 0.3 mg/dL (0.1-1.0); Blood Urea Nitrogen 8 mg/dL (8-24); Bun/Creatinine Ratio 11.8 (12.0-20.0); CO2, Blood 27 mmol/L (21-32); Calcium, Blood 8.4 mg/dL (8.5-10.1); Chloride, Blood 106 mmol/L (98-108); Creatinine, Blood 0.68 mg/dL (0.40-1.00); Globulin, Blood 4.6 g/dL (2.2-4.0); Glomerular Filtration Rate >60 (60-); Glucose, Blood 159 mg/dL (70-99); Potassium, Blood 4.2 mmol/L (3.5-5.5); Sodium, Blood 137 mmol/L (136-145); Total Protein, Blood 6.8 g/dL (6.4-8.2)
--- NOTE | 2021-12-14 05:47 | NUR ---
SHIFT SUMMARY PATIENT FOUND TO BE A PLESANT LADY WHO IS A&OX4 AND UP IND IN ROOM. COMPLAINS OF PAIN 8/10 TO ABCESS SITE ON RIGHT FOREARM. WAS ABLE TO GET OXY Q6H PRN ORDERED AND GIVEN WITH GOOD RELIEF. ICE PACK TO SITE. SWELLING AND REDNESS TO SITE WITHOUT CHANGES. WARM TO TOUCH. SLEPT VERY HARD AND TALKS ALOT IN HER SLEEP. VSS. SR/ST IN THE 90'S-LOW 100'S. ON AIRVO WITH SETTINGS OF 40L AND 57% SATING HIGH 90'S ALL SHIFT. DEVELOPING A WORSENING PRODUCTIVE COUGH AND STATES IT IS PAINFUL TO BREATH DEEP. MADE MD AWARE THAT STEROID HAD HELPED WITH HER PREVIOUS INHALATION INJURY AND WAS ABLE TO GET A ONE TIME DOSE ONLY NIGHT MD STATED HE WAS NOT FAMILIAR ENOUGH WITH PATIENT. PATIENT STATED SHE STARTED TO BREATH BETTER WITH LESS DISCOMFORT SHORTLY AFTER THIS WAS GIVEN SO WILL PASS ON TO DAY SHIFT TO SEE IF WE CAN GET MORE ORDERED TODAY. REFUSED DINNER RELATED TO NAUSEA. NPO SINCE MIDNIGHT FOR I&D PROCEDURE TODAY. IV ABX INFUSING PER ORDER. NO ACUTE CONCERNS AT THIS TIME. WILL CONTINUE PLAN OF CARE UNTIL REPORT GIVEN TO BLESSING STEVENSON.
--- NOTE | 2021-12-14 09:37 | NUR ---
12/14/21 0937 Mariel Scott PATIENT ON SCHEDULED ANTIBIOTICS. RECEIVED ZOSYN 3.375G, 12/14/21, AT 0642. RECEIVED VANCO 1750MG, 12/14/21, AT 0438.
--- NOTE | 2021-12-14 15:06 | NUR ---
SHIFT SUMMARY PT A&OX4, VSS/AIRVO 40L 50%, TELE NSR @ 96 BPM, BEBO PWRGLIDE FLUSHES AND DRAWS WELL. S/P RUE I&D, DRESSING CDI, ELEVATED ON PILLOW. PAIN MANAGED WITH METHADONE, OXY & TYLENOL. PULMONDARY CONSULT-DR IN TO SEE PT. CHASE PO REG DIET. VOIDING WELL/BSC, BM TODAY/AMB TO [facility] W/SBA. IVF KVO/ABX PER EMAR. WILL REPORT TO ONCOMING NOC GRAHAM.
[2021-12-14 15:25] LABS: Vancomycin, Trough 10.4 ug/mL (5.0-10.0)
[2021-12-15 05:19] LABS: BASOPHILS ABSOLUTE AUTO 0.03 K/mm3 (0.00-0.23); BASOPHILS PERCENT AUTO 0 % (0-2); EOSINOPHILS PERCENT AUTO 0 % (0-6); Hematocrit 31.4 % (33.0-51.0); Hemoglobin 10.3 g/dL (11.5-16.0); IMMATURE GRAN ABSOLUTE AUTO 0.21 K/mm3 (0.00-0.10); IMMATURE GRAN PERCENT AUTO 1 % (0-1); LYMPHOCYTES ABSOLUTE AUTO 1.84 K/mm3 (0.84-5.20); LYMPHOCYTES PERCENT AUTO 9 % (21-46); MONOCYTES ABSOLUTE AUTO 0.71 K/mm3 (0.16-1.47); MONOCYTES PERCENT AUTO 3 % (4-13); Mean Corpuscular HGB 27.8 pg (26.0-34.0); Mean Corpuscular HGB Conc 32.8 g/dL (31.5-36.5); Mean Corpuscular Volume 85 fL (80-100); Mean Platelet Volume 9.5 fL (9.1-12.4); NEUTROPHILS ABSOLUTE AUTO 18.15 K/mm3 (1.96-9.15); NEUTROPHILS PERCENT AUTO 87 % (41-73); Platelet Count 320 K/mm3 (150-400); RDW Standard Deviation 43.6 fL (35.1-46.3); Red Blood Cell Count 3.71 M/mm3 (3.80-5.20); White Blood Cell Count 20.94 K/mm3 (4.00-11.30)
[2021-12-15 05:37] LABS: Vancomycin, Trough 10.2 ug/mL (5.0-10.0)
--- NOTE | 2021-12-15 06:33 | NUR ---
SHIFT SUMMARY PATIENT FOUND TO BE A PLESANT LADY WHO IS A&OX4 AND UP IND IN ROOM. PRN OXY Q6H NOT KEEPING PAIN AT TOLERABLE LEVEL SO USED NORCO FOR BREAKTHROUGH PAIN WITH GOOD RELIEF OF 9/10 PAIN TO RIGHT FOREARM. ALSO COMPLAINS OF BACK PAIN. ICE PACK TO SITE AND ELEVATED ON PILLOW. RANJIT WRAP INTACT. VSS. SR/ST ON THE MONITOR IN THE 90'S-LOW 100'S. ON ARIVO WITH SETTINGS OF 40L, 40% SATING MID 90'S. WILL CONTINUE TO WEAN TOLERATED. PATIENT STATES SINCE STEROID STARTED SHE HAS BEEN BREATHING BETTER. DRY, NON PRODUCTIVE COUGH. TOELRATING REG DIET WITHOUT ISSUE. VODIING WELL PER BSC. WILL CONTINUE PLAN OF CARE UNTIL REPORT GIVEN TO BLESSING STEVENSON.
--- NOTE | 2021-12-15 18:02 | NUR ---
SHIFT SUMMARY PT HAS BEEN RESTING IN ROOM, THEY SLEPT FOR SEVERAL HOURS IN THE MIDDLE OF THE DAY. PT HAS C/O 7/10 PAIN TO THE RIGHT ARM, TREATED WITH COLD COMPRESS AND MEDICATION PER EMAR. PT HAS GOTTEN SELF UP TO BEDSIDE COMMODE INDEPENDENTLY. PT HAS BEEN TITRATED OFF OF AIRVO TO 10L HIGH FLOW NC, TOLERATING WELL AND MAINTAINING SPO2 >92%. PT STATED A DIFFICULTY IN FINDING COMFORT, RECLINER WAS OFFERED AND PT TRANSFERRED SELF TO CHAIR AND BACK FOR COMFORT INDEPENDENTLY.
--- NOTE | 2021-12-15 19:36 | NUR ---
RECEIVED REPORT AND ASSUMED CARE OF PT. SHE IS LYING IN BED WITH HER EYES CLOSED WITH EVEN, UNLABORED RESPIRATIONS, MAINTAINING SATS ON 10 L VIA NC. CALL LIGHT IN REACH. WCTM.
[2021-12-16 05:49] LABS: BASOPHILS ABSOLUTE AUTO 0.04 K/mm3 (0.00-0.23); BASOPHILS PERCENT AUTO 0 % (0-2); EOSINOPHILS PERCENT AUTO 0 % (0-6); Hematocrit 31.3 % (33.0-51.0); Hemoglobin 10.1 g/dL (11.5-16.0); IMMATURE GRAN ABSOLUTE AUTO 0.26 K/mm3 (0.00-0.10); IMMATURE GRAN PERCENT AUTO 1 % (0-1); LYMPHOCYTES ABSOLUTE AUTO 2.46 K/mm3 (0.84-5.20); LYMPHOCYTES PERCENT AUTO 13 % (21-46); MONOCYTES ABSOLUTE AUTO 0.96 K/mm3 (0.16-1.47); MONOCYTES PERCENT AUTO 5 % (4-13); Mean Corpuscular HGB 27.6 pg (26.0-34.0); Mean Corpuscular HGB Conc 32.3 g/dL (31.5-36.5); Mean Corpuscular Volume 86 fL (80-100); Mean Platelet Volume 9.5 fL (9.1-12.4); NEUTROPHILS ABSOLUTE AUTO 15.13 K/mm3 (1.96-9.15); NEUTROPHILS PERCENT AUTO 80 % (41-73); Platelet Count 304 K/mm3 (150-400); RDW Coefficient Variation 13.8 % (11.7-14.2); RDW Standard Deviation 43.3 fL (35.1-46.3); Red Blood Cell Count 3.66 M/mm3 (3.80-5.20); White Blood Cell Count 18.85 K/mm3 (4.00-11.30)
--- NOTE | 2021-12-16 06:00 | NUR ---
SHIFT SUMMARY: "BRUNILDA" IS A&OX4. VSS, NO ACUTE EVENTS OVERNIGHT. SHE IS MAINTAINING SATS >90% ON 6-8 LPM VIA HIGH-DEANNA NC. SHE DID WEAR HER CPAP DURING THE NIGHT AND HAD ONE EPISODE OF DESATURATION WHICH WAS CAUSED BY A NIGHTMARE. SHE IS INDEPENDENT TO THE BEDSIDE COMMODE, ABLE TO TURN AND REPOSITION HERSELF IN BED INDEPENDENTLY. IT WAS NOTICED THAT HER FINGERS WERE SWOLLEN AND THE PT STATED THAT HER HANDS ALWAYS SWELL WHILE SHE IS SLEEPING, NO LOWER EXTREMITY EDEMA. RIGHT ARM ELEVATED AND ICED INTERMITTENTLY THIS SHIFT. SHE IS TOLERATING PO INTAKE WELL, URINATING WITHOUT DIFFICULTY, AND USES THE CALL LIGHT APPROPRIATELY. SHE IS LYING IN BED WITH THE CALL LIGHT IN REACH. WILL REPORT TO DAY SHIFT RN.
[2021-12-16 06:38] LABS: Alanine Aminotransfer (ALT/SGP 16 U/L (12-78); Albumin, Blood 2.1 g/dL (3.4-5.0); Albumin/Globulin Ratio 0.5 (0.8-1.8); Alk Phos 95 U/L (50-136); Anion Gap 4 mmol/L (6-16); Aspartate Aminotrans (AST/SGOT 19 U/L (12-37); Bilirubin, Total 0.2 mg/dL (0.1-1.0); Blood Urea Nitrogen 17 mg/dL (8-24); Bun/Creatinine Ratio 22.6 (12.0-20.0); CO2, Blood 27 mmol/L (21-32); Calcium, Blood 8.2 mg/dL (8.5-10.1); Chloride, Blood 108 mmol/L (98-108); Creatinine, Blood 0.75 mg/dL (0.40-1.00); Globulin, Blood 4.4 g/dL (2.2-4.0); Glomerular Filtration Rate >60 (60-); Glucose, Blood 119 mg/dL (70-99); Potassium, Blood 4.4 mmol/L (3.5-5.5); Sodium, Blood 139 mmol/L (136-145); Total Protein, Blood 6.5 g/dL (6.4-8.2)
--- NOTE | 2021-12-16 18:18 | NUR ---
SHIFT SUMMARY PT HAS BEEN UP IN ROOM INDEPENDENTLY. PT HAS CALLED FOR ASSISTANCE WHERE APPROPRIATE. PT AMBULATED SELF TO RESTROOM ON MORE THAN ONE OCCASION. RIGHT ARM DRESSING BECAME WET AND LOOSE AFTER SHOWERING, PROVIDER CAME TO PT ROOM TO REDRESS AND EDUCATE PT. PT WAS RECEPTIVE AND ASKED QUESTIONS. OXYGEN USE WAS TITRATED DOWN TO 2L, SPO2 HAS REMAINED >88%. SBP 119-154.
--- NOTE | 2021-12-17 05:48 | NUR ---
SHIFT SUMMARY PT ALERT AND ORIENTED X4. ON 2-3L NC WHILE AWAKE, ON CPAP WHILE ASLEEP, MAINTAINING SATS OVER 93%. BP STABLE. PULSE 60'S. PT INDEPENDENTLY AMBULATES FOR ADL'S. PT C/O OF 7-8/10 RIGHT ARM PAIN X2 THIS SHIFT. RELIEVED PER EMAR. ASLEEP MOST OF SHIFT. IN BED RESTING WITH CALL ALARM AT SIDE. WILL CONTINUE TO MONITOR UNTIL REPORT GIVEN TO DAYSHIFT RN
[2021-12-17 08:17] LABS: BASOPHILS ABSOLUTE AUTO 0.03 K/mm3 (0.00-0.23); BASOPHILS PERCENT AUTO 0 % (0-2); EOSINOPHILS ABSOLUTE AUTO 0.15 K/mm3 (0.00-0.68); EOSINOPHILS PERCENT AUTO 1 % (0-6); Hematocrit 33.6 % (33.0-51.0); Hemoglobin 10.7 g/dL (11.5-16.0); IMMATURE GRAN ABSOLUTE AUTO 0.28 K/mm3 (0.00-0.10); IMMATURE GRAN PERCENT AUTO 2 % (0-1); LYMPHOCYTES ABSOLUTE AUTO 4.17 K/mm3 (0.84-5.20); LYMPHOCYTES PERCENT AUTO 31 % (21-46); MONOCYTES PERCENT AUTO 5 % (4-13); Mean Corpuscular HGB 27.2 pg (26.0-34.0); Mean Corpuscular HGB Conc 31.8 g/dL (31.5-36.5); Mean Corpuscular Volume 85 fL (80-100); Mean Platelet Volume 9.3 fL (9.1-12.4); NEUTROPHILS ABSOLUTE AUTO 7.94 K/mm3 (1.96-9.15); NEUTROPHILS PERCENT AUTO 60 % (41-73); Platelet Count 320 K/mm3 (150-400); RDW Coefficient Variation 13.7 % (11.7-14.2); RDW Standard Deviation 42.9 fL (35.1-46.3); Red Blood Cell Count 3.94 M/mm3 (3.80-5.20); White Blood Cell Count 13.27 K/mm3 (4.00-11.30)
[2021-12-17] MEDS ORDERED: AMOCLA875 PO (13:11)
[2021-12-17] MEDS ORDERED: HYDR1TAB94 PO (13:12)
[2021-12-17] MEDS ORDERED: PRED20 PO (13:13)
[2021-12-17] MEDS ORDERED: VISBIOME 112.51 EACH PO (13:15)
--- NOTE | 2021-12-17 13:22 | NUR ---
Spiritual care visit conducted. Patient is resting but easily awakens to the sound of her name. Pt begins talking but starts to slur and kari off after a few sentences as her eyes begin to close. Pt tells me that she is "all good" but agrees to prayer. I gladly provide prayer and then let patient return to sleeping. Pt voices appreciation for the visit and prayer. I will continue to remain available to pt and family.
--- NOTE | 2021-12-17 14:39 | NUR ---
PT DISCHARGE TO HOME WITH DISCHARGE ORDERS. PRESCRIPTION FAXED TO [facility]. DISCLOSED INSTRUCTION AND MEDICATION PT VERBALIZED UNDERSTANDING, DRESSING ON RIGHT ARM CLEANED AND REPACKED, ALSO EDUCATED PT ABOUT DRESSING CHANGE AND HYGIENE, TO FOLLOW UP WITH WOUND CLINIC AND DR CHANG. PAIN MEDS FOR PAIN MANAGEMENT HARD SCRIPT SENT WITH THE PT. NO OTHER ISSUES REPORTED, POWERGLIDE DC'D WITH NO ISSUES. FAMILY WENT BELT MAKER THE PT, ALL BELONGINGS SENT WITH THE PT, ACCOMPANIED VIA WHEELCHAIR. HOME O2 EVAL DONE OT REQUIRING 2L AT REST 4L WITH EXERTION, [facility] [place] DELIVERED PORTABLE O2 UPON DISCHARGE
== END 2021-12-17 14:30 | disposition home or self-care (01) | DRG 853 ==
LOC: ER 21:30 → EDBEDREQ 12-13 04:02 → PCU 12-13 04:19 → MEDS 12-13 04:19 → PCU 12-13 13:20
PROVIDERS: Family Medicine; Internal Medicine Critical Care Medicine; Orthopaedic Surgery; Physician Assistant; Student in an Organized Health Care Education/Training Program; ADMIT Internal Medicine
PROC: 5A0945A Assistance with Respiratory Ventilation, 24-96 Consecutive Hours, High Flow/Velocity Cannula (ICD-10-PCS; 2021-12-13)
PROC: 0HBDXZZ Excision of Right Lower Arm Skin, External Approach (ICD-10-PCS; 2021-12-14)
PROC: 0R9L0ZZ Drainage of Right Elbow Joint, Open Approach (ICD-10-PCS; principal; 2021-12-14 09:00)
DX: A41.9 Sepsis, unspecified organism (principal); J96.01 Acute respiratory failure with hypoxia; L02.413 Cutaneous abscess of right upper limb; L03.113 Cellulitis of right upper limb; J81.1 Chronic pulmonary edema; Z68.43 Body mass index [BMI] 50.0-59.9, adult; G47.33 Obstructive sleep apnea (adult) (pediatric); F15.10 Other stimulant abuse, uncomplicated; F11.10 Opioid abuse, uncomplicated; R65.20 Severe sepsis without septic shock; U07.0 Vaping-related disorder; D72.828 Other elevated white blood cell count; T38.0X5A Adverse effect of glucocorticoids and synthetic analogues, initial encounter; Z88.8 Allergy status to other drugs, medicaments and biological substances; Z88.1 Allergy status to other antibiotic agents; Z91.040 Latex allergy status; Z79.899 Other long term (current) drug therapy; E66.9 Obesity, unspecified; F31.9 Bipolar disorder, unspecified; Z90.49 Acquired absence of other specified parts of digestive tract; F17.210 Nicotine dependence, cigarettes, uncomplicated; Z88.5 Allergy status to narcotic agent; J84.89 Other specified interstitial pulmonary diseases
CPT/HCPCS: 0241U; 36415; 71045; 71260; 73201; 80048; 80053; 80202; 83605; 83880; 84484; 85025; 85379; 87040; 87070; 87075; 87205; 93005; 93010; 93306; 94640; 94660; 94761; 94762; 96365; 99285-25; A9270; C1751; J0295; J1100; J1650; J1940; J2250; J2405; J2543; J2704; J2920; J2930; J3010; J3370; J7030; J7050; J7512; Q9967

== ENCOUNTER 2021-12-25 17:43 | Emergency (ER) | payer OTHER ==
[~2021-12-25] VITALS: Ht 167.6 cm; Wt 155.1 kg
[~2021-12-25 17:43] MED LIST changes: +HYDR1TAB94 PO; +VISBIOME 112.51 EACH PO
[2022-07-25] MEDS ORDERED: Cleocin HCl300 MG PO (19:07)
== END 2021-12-25 20:05 | disposition home or self-care (01) ==
LOC: ER 17:43
DX: Z48.817 Encounter for surgical aftercare following surgery on the skin and subcutaneous tissue (principal); E11.9 Type 2 diabetes mellitus without complications; D64.9 Anemia, unspecified; M19.90 Unspecified osteoarthritis, unspecified site; J45.909 Unspecified asthma, uncomplicated; K21.9 Gastro-esophageal reflux disease without esophagitis; Z91.040 Latex allergy status; Z88.1 Allergy status to other antibiotic agents; Z91.048 Other nonmedicinal substance allergy status; Z88.8 Allergy status to other drugs, medicaments and biological substances; Z79.899 Other long term (current) drug therapy; Z79.52 Long term (current) use of systemic steroids; Z98.890 Other specified postprocedural states
CPT/HCPCS: 99282

== ENCOUNTER 2022-04-23 16:50 | Emergency (ER) | payer OTHER ==
[~2022-04-23] VITALS: Ht 167.6 cm; Wt 154.7 kg
[2022-04-23 17:49] LABS: BASOPHILS ABSOLUTE AUTO 0.03 K/mm3 (0.00-0.23); BASOPHILS PERCENT AUTO 0 % (0-2); EOSINOPHILS ABSOLUTE AUTO 0.11 K/mm3 (0.00-0.68); EOSINOPHILS PERCENT AUTO 1 % (0-6); Hematocrit 39.2 % (33.0-51.0); Hemoglobin 12.6 g/dL (11.5-16.0); IMMATURE GRAN ABSOLUTE AUTO 0.04 K/mm3 (0.00-0.10); IMMATURE GRAN PERCENT AUTO 0 % (0-1); LYMPHOCYTES ABSOLUTE AUTO 3.59 K/mm3 (0.84-5.20); LYMPHOCYTES PERCENT AUTO 33 % (21-46); MONOCYTES ABSOLUTE AUTO 0.64 K/mm3 (0.16-1.47); MONOCYTES PERCENT AUTO 6 % (4-13); Mean Corpuscular HGB 26.9 pg (26.0-34.0); Mean Corpuscular HGB Conc 32.1 g/dL (31.5-36.5); Mean Corpuscular Volume 84 fL (80-100); Mean Platelet Volume 9.4 fL (9.1-12.4); NEUTROPHILS ABSOLUTE AUTO 6.43 K/mm3 (1.96-9.15); NEUTROPHILS PERCENT AUTO 59 % (41-73); Platelet Count 272 K/mm3 (150-400); RDW Coefficient Variation 13.9 % (11.7-14.2); RDW Standard Deviation 42.3 fL (35.1-46.3); Red Blood Cell Count 4.68 M/mm3 (3.80-5.20); White Blood Cell Count 10.84 K/mm3 (4.00-11.30)
[2022-04-23 18:11] LABS: Albumin, Blood 3.1 g/dL (3.4-5.0); Albumin/Globulin Ratio 0.7 (0.8-1.8); Bilirubin, Total 0.2 mg/dL (0.1-1.0); Bun/Creatinine Ratio 10.8 (12.0-20.0); Creatinine, Blood 0.65 mg/dL (0.40-1.00); Globulin, Blood 4.3 g/dL (2.2-4.0); Potassium, Blood 4.1 mmol/L (3.5-5.5); Total Protein, Blood 7.4 g/dL (6.4-8.2)
== END 2022-04-23 20:40 | disposition home or self-care (01) ==
LOC: ER 16:50
PROVIDERS: Physician Assistant
DX: I50.20 Unspecified systolic (congestive) heart failure (principal); J45.909 Unspecified asthma, uncomplicated; E11.9 Type 2 diabetes mellitus without complications; G47.33 Obstructive sleep apnea (adult) (pediatric); Z86.718 Personal history of other venous thrombosis and embolism; I27.20 Pulmonary hypertension, unspecified; F11.11 Opioid abuse, in remission; F17.210 Nicotine dependence, cigarettes, uncomplicated; Z79.899 Other long term (current) drug therapy; Z88.1 Allergy status to other antibiotic agents; Z91.040 Latex allergy status; Z88.8 Allergy status to other drugs, medicaments and biological substances; Z91.09 Other allergy status, other than to drugs and biological substances
CPT/HCPCS: 36415; 71046; 80053; 83880; 84484; 85025; 93005; 93010; 99284-25

== ENCOUNTER → 2022-08-20 | Outpatient (CLI) | payer OTHER ==
[2022-08-21 15:10] LABS: HPV 16 Positive (Negative); HPV 18 Negative (Negative); HPV OTHER HR TYPES Negative (Negative)
== END | disposition home or self-care (01) ==
LOC: LAB SHORT 14:00 → LAB 14:00
PROVIDERS: Obstetrics & Gynecology
DX: Z12.4 Encounter for screening for malignant neoplasm of cervix (principal)
CPT/HCPCS: 87624; G0123

== ENCOUNTER 2022-10-24 12:11 | Emergency (ER) | payer OTHER ==
[~2022-10-24] VITALS: Ht 167.6 cm; Wt 151.9 kg
[2022-10-24] MEDS ORDERED: TRAM50 PO (15:45)
== END 2022-10-24 16:05 | disposition home or self-care (01) ==
LOC: ER 12:11
DX: K04.7 Periapical abscess without sinus (principal); J45.909 Unspecified asthma, uncomplicated; E11.9 Type 2 diabetes mellitus without complications; I50.20 Unspecified systolic (congestive) heart failure; F17.210 Nicotine dependence, cigarettes, uncomplicated; Z88.1 Allergy status to other antibiotic agents; Z91.040 Latex allergy status; Z88.8 Allergy status to other drugs, medicaments and biological substances; Z91.048 Other nonmedicinal substance allergy status; Z79.899 Other long term (current) drug therapy
CPT/HCPCS: 99283

== ENCOUNTER 2022-11-28 12:29 | Emergency (ER) | payer OTHER ==
[~2022-11-28] VITALS: Ht 167.6 cm; Wt 154.2 kg
[2022-11-28] MEDS ORDERED: Bactrim Ds Tab1 EACH PO (13:41)
== END 2022-11-28 14:45 | disposition home or self-care (01) ==
LOC: ER 12:29
DX: L02.211 Cutaneous abscess of abdominal wall (principal); J02.9 Acute pharyngitis, unspecified; E11.9 Type 2 diabetes mellitus without complications; I50.20 Unspecified systolic (congestive) heart failure; F17.210 Nicotine dependence, cigarettes, uncomplicated; Z88.8 Allergy status to other drugs, medicaments and biological substances; Z91.040 Latex allergy status; Z91.09 Other allergy status, other than to drugs and biological substances; Z79.899 Other long term (current) drug therapy
CPT/HCPCS: J1100

== ENCOUNTER → 2023-12-03 | Outpatient (CLI) | payer OTHER | LOC: LAB SHORT 14:20 → LAB 14:20 | DX: L73.2 Hidradenitis suppurativa (principal) | CPT/HCPCS: 87070; 87075; 87205 ==

== ENCOUNTER 2024-08-20 22:02 | Emergency (ER) | payer OTHER ==
[~2024-08-20] VITALS: Ht 165.1 cm; Wt 145.2 kg
[2024-08-20 22:38] VITALS: BP 124/77
[2024-08-20] MEDS ORDERED: CEPH500 PO (22:45)
[2024-08-20] MEDS ORDERED: Diflucan100 MG PO (22:45)
== END 2024-08-20 22:46 | disposition home or self-care (01) ==
LOC: ER 22:02
DX: L03.90 Cellulitis, unspecified (principal); G43.909 Migraine, unspecified, not intractable, without status migrainosus; M41.9 Scoliosis, unspecified; J45.909 Unspecified asthma, uncomplicated; E11.9 Type 2 diabetes mellitus without complications; I50.9 Heart failure, unspecified; F17.210 Nicotine dependence, cigarettes, uncomplicated; Z88.8 Allergy status to other drugs, medicaments and biological substances; Z88.1 Allergy status to other antibiotic agents; Z91.040 Latex allergy status; Z91.048 Other nonmedicinal substance allergy status; Z79.2 Long term (current) use of antibiotics; Z79.899 Other long term (current) drug therapy
CPT/HCPCS: 99282

== ENCOUNTER 2025-02-19 22:56 | Emergency (ER) | payer OTHER ==
[~2025-02-19] VITALS: Ht 167.6 cm; Wt 158.8 kg
[2025-02-19 23:06] VITALS: BP 146/104
[2025-02-19 23:36] LABS: BASOPHILS ABSOLUTE AUTO 0.05 K/mm3 (0.00-0.23); BASOPHILS PERCENT AUTO 1 % (0-2); EOSINOPHILS ABSOLUTE AUTO 0.09 K/mm3 (0.00-0.68); EOSINOPHILS PERCENT AUTO 1 % (0-6); Hematocrit 38.2 % (33.0-51.0); Hemoglobin 12.5 g/dL (11.5-16.0); IMMATURE GRAN ABSOLUTE AUTO 0.07 K/mm3 (0.00-0.10); IMMATURE GRAN PERCENT AUTO 1 % (0-1); LYMPHOCYTES ABSOLUTE AUTO 3.01 K/mm3 (0.84-5.20); LYMPHOCYTES PERCENT AUTO 28 % (21-46); MONOCYTES ABSOLUTE AUTO 0.64 K/mm3 (0.16-1.47); MONOCYTES PERCENT AUTO 6 % (4-13); Mean Corpuscular HGB 26.8 pg (26.0-34.0); Mean Corpuscular HGB Conc 32.7 g/dL (31.5-36.5); Mean Corpuscular Volume 82 fL (80-100); Mean Platelet Volume 8.8 fL (9.1-12.4); NEUTROPHILS ABSOLUTE AUTO 6.78 K/mm3 (1.96-9.15); NEUTROPHILS PERCENT AUTO 64 % (41-73); Platelet Count 277 K/mm3 (150-400); Red Blood Cell Count 4.67 M/mm3 (3.80-5.20); White Blood Cell Count 10.64 K/mm3 (4.00-11.30)
[2025-02-19 23:53] LABS: Albumin, Blood 3.4 g/dL (3.4-5.0); Albumin/Globulin Ratio 0.9 (0.8-1.8); Bilirubin, Total 0.5 mg/dL (0.1-1.0); Bun/Creatinine Ratio 9.2 (12.0-20.0); Calcium, Blood 8.5 mg/dL (8.5-10.1); Creatinine, Blood 0.76 mg/dL (0.40-1.00); Globulin, Blood 3.9 g/dL (2.2-4.0); Potassium, Blood 3.9 mmol/L (3.5-5.5); Total Protein, Blood 7.3 g/dL (6.4-8.2)
== END 2025-02-20 01:50 | disposition home or self-care (01) ==
LOC: ER 22:56
PROVIDERS: Emergency Medicine
DX: R00.2 Palpitations (principal); I50.9 Heart failure, unspecified; M19.90 Unspecified osteoarthritis, unspecified site; J45.909 Unspecified asthma, uncomplicated; E11.9 Type 2 diabetes mellitus without complications; K21.9 Gastro-esophageal reflux disease without esophagitis; G47.30 Sleep apnea, unspecified; Z91.048 Other nonmedicinal substance allergy status; Z88.8 Allergy status to other drugs, medicaments and biological substances; Z88.1 Allergy status to other antibiotic agents; Z79.2 Long term (current) use of antibiotics; Z79.899 Other long term (current) drug therapy
CPT/HCPCS: 71046; 80053; 83690; 83880; 84484; 85025; 93005; 93010; 99285-25

== ENCOUNTER 2025-03-14 16:32 | Emergency (ER) | payer OTHER ==
[~2025-03-14] VITALS: Ht 167.6 cm; Wt 149.7 kg
[2025-03-14 16:39] VITALS: BP 142/96
[2025-03-14] MEDS ORDERED: SUBVENITE150 M1 PO (17:50)
[2025-03-14] MEDS ORDERED: BUDESONIDE-FO10.2 G2 INH (17:50)
[2025-03-14] MEDS ORDERED: ALBU90OI INH (17:50)
[2025-03-14] MEDS ORDERED: DOXY100 PO (17:50)
[2025-03-14] MEDS ORDERED: BUME2 PO (17:50)
[2025-03-14] MEDS ORDERED: CARV6.25 PO (17:50)
== END 2025-03-14 18:48 | disposition home or self-care (01) ==
LOC: ER 16:32
DX: Z76.0 Encounter for issue of repeat prescription (principal); I11.0 Hypertensive heart disease with heart failure; I50.9 Heart failure, unspecified; J45.909 Unspecified asthma, uncomplicated; G47.33 Obstructive sleep apnea (adult) (pediatric); F17.210 Nicotine dependence, cigarettes, uncomplicated; K21.9 Gastro-esophageal reflux disease without esophagitis; E11.9 Type 2 diabetes mellitus without complications
CPT/HCPCS: 99283-25

== ENCOUNTER 2025-06-04 22:40 | Emergency (ER) | payer OTHER ==
[~2025-06-04] VITALS: Ht 167.6 cm; Wt 145.2 kg
[~2025-06-04 22:40] MED LIST changes: +BUDESONIDE-FO10.2 G2 INH; +BUME2 PO; +CARV6.25 PO; +DOXY100 PO; +SUBVENITE150 M1 PO
[2025-06-04 23:14] LABS: BASOPHILS ABSOLUTE AUTO 0.04 K/mm3 (0.00-0.23); BASOPHILS PERCENT AUTO 1 % (0-2); EOSINOPHILS ABSOLUTE AUTO 0.09 K/mm3 (0.00-0.68); EOSINOPHILS PERCENT AUTO 1 % (0-6); Hematocrit 35.8 % (33.0-51.0); Hemoglobin 11.4 g/dL (11.5-16.0); IMMATURE GRAN ABSOLUTE AUTO 0.03 K/mm3 (0.00-0.10); IMMATURE GRAN PERCENT AUTO 0 % (0-1); LYMPHOCYTES ABSOLUTE AUTO 2.15 K/mm3 (0.84-5.20); LYMPHOCYTES PERCENT AUTO 27 % (21-46); MONOCYTES ABSOLUTE AUTO 0.50 K/mm3 (0.16-1.47); MONOCYTES PERCENT AUTO 6 % (4-13); Mean Corpuscular HGB Conc 31.8 g/dL (31.5-36.5); Mean Corpuscular Volume 83 fL (80-100); NEUTROPHILS ABSOLUTE AUTO 5.21 K/mm3 (1.96-9.15); NEUTROPHILS PERCENT AUTO 65 % (41-73); NRBC ABSOLUTE 0.00 K/mm3 (0.00-0.02); NRBC Auto 0.0 /100 WBC (0.0-0.2); Platelet Count 245 K/mm3 (150-400); RDW Coefficient Variation 13.5 % (11.7-14.2); RDW Standard Deviation 40.7 fL (35.1-46.3)
[2025-06-04 23:36] LABS: Alanine Aminotransfer (ALT/SGP 18.0 U/L (12-78); Albumin, Blood 2.8 g/dL (3.4-5.0); Albumin/Globulin Ratio 0.7 (0.8-1.8); Anion Gap 6.0 mmol/L (3-11); Aspartate Aminotrans (AST/SGOT 17.0 U/L (12-37); Bilirubin, Total 0.2 mg/dL (0.1-1.0); Blood Urea Nitrogen 6.0 mg/dL (8-24); CO2, Blood 26.0 mmol/L (21-32); Calcium, Blood 8.4 mg/dL (8.5-10.1); Chloride, Blood 107.0 mmol/L (98-108); Creatinine, Blood 0.73 mg/dL (0.40-1.00); Globulin, Blood 4.3 g/dL (2.2-4.0); Glucose, Blood 137.0 mg/dL (70-99); Potassium, Blood 3.6 mmol/L (3.5-5.5); Sodium, Blood 135.0 mmol/L (136-145); Total Protein, Blood 7.1 g/dL (6.4-8.2)
[2025-06-05] MEDS ORDERED: Clindamycin 600mg in D5W 50 ML IV ONE (01:40)
[2025-06-05] MEDS ORDERED: Cleocin HCl150 MG PO (01:44)
[2025-06-05 01:58] VITALS: BP 130/76
== END 2025-06-05 02:25 | disposition home or self-care (01) ==
LOC: ER 22:40
PROVIDERS: Student in an Organized Health Care Education/Training Program
DX: K04.7 Periapical abscess without sinus (principal); S02.5XXA Fracture of tooth (traumatic), initial encounter for closed fracture; K02.9 Dental caries, unspecified; J45.909 Unspecified asthma, uncomplicated; E11.9 Type 2 diabetes mellitus without complications; K21.9 Gastro-esophageal reflux disease without esophagitis; I50.9 Heart failure, unspecified; F17.210 Nicotine dependence, cigarettes, uncomplicated; Z88.1 Allergy status to other antibiotic agents; Z88.8 Allergy status to other drugs, medicaments and biological substances; Z91.09 Other allergy status, other than to drugs and biological substances; Z79.899 Other long term (current) drug therapy; Z79.52 Long term (current) use of systemic steroids
CPT/HCPCS: 80053; 85025; 96365; 99282-25